=== PATIENT | male | born 1985 | race Caucasian/White ===

== ENCOUNTER → 2019-07-10 16:46 | Outpatient (BNVA) | payer SELFPAY | PROVIDERS: PCP Family Medicine; Visit Provider Nurse Practitioner | DX: R50.9 Fever, unspecified (principal) | CPT/HCPCS: 87804 ==

== ENCOUNTER → 2019-09-13 14:50 | Outpatient (BNVA) | payer OTHER, SELFPAY | PROVIDERS: PCP Family Medicine; Visit Provider Nurse Practitioner | DX: M79.641 Pain in right hand (principal); M79.89 Other specified soft tissue disorders | CPT/HCPCS: 73130 ==

== ENCOUNTER 2020-01-07 12:26 | Emergency (ER) | payer SELFPAY ==
[2020-01-07 12:34] VITALS: BP 116/76; PULSE 63; RESP 16; TEMP 36.7; O2SAT 98; BMI 22.3
--- NOTE | 2020-01-07 12:43 | ED_ITS ---
HPI - Back Pain/Injury General: Chief Complaint: Back Pain/Injury Stated Complaint: BACK PAIN Time Seen by Provider: 01/07/20 12:43 Source: patient Mode of arrival: ambulatory Limitations: no limitations History of Present Illness: HPI Narrative: Patient is a nice 34-year-old male who presents to ED today with complaints of right-sided back/flank pain that began this morning when patient awoke. Patient tells me he felt normal when he went to bed yesterday evening. He states he cannot think of anything he would have done to injure or strain his back. He is also concerned stating he has only urinated twice today and has drank several bottles of water/fluid. Patient is not been running fevers. He has not noticed any color changes to his urine. He has no previous history of back pain or back injury. MD elicited complaint: back pain Onset (ago): hour(s) Timing: constant Similar Symptoms Previously: No Quality: sharp Location: right flank Radiation: none Exacerbating factors: none Relieving factors: none Associated symptoms: Reports other (decreased urination ); Deny abdominal pain, chills, dysuria, fever(s), hematuria, nausea, urinary urgency or vomiting Work related injury: No Review of Systems Const: Denies: fever(s) or chills Card: Denies: chest pain Resp: Denies: dyspnea GI: Denies: abdominal pain, nausea, vomiting or diarrhea : Reports: flank pain and oliguria; Denies: difficulty urinating, dysuria, urinary frequency, urinary urgency, urinary hesitancy, change in urine stream, hematuria, genital pain, genital lesions, penile discharge, testicular pain, testicular mass or scrotal swelling Musc: Reports: back pain (R sided back/flank pain) [facility] ED PFSH: Social History (Updated 09/13/19 @ 14:40 by Jen Norris LPN) Smoking and tobacco status: current every day smoker Physical Exam Const: COMMON NORMALS: no acute distress, average body habitus, patient oriented x3, no limitations, healthy appearing, alert and well nourished Chest: COMMONS NORMALS: normal inspection of the chest and normal palpation of entire chest wall Resp: COMMON NORMALS: normal respiratory effort and clear to auscultation bilaterally AUSCULTATION: clear to auscultation bilaterally Cardio: COMMON NORMALS: regular rate and regular rhythm RATE: regular rate RHYTHM: regular rhythm : BLADDER/KIDNEY EXAM: Yes CVA tenderness (R flank and below/R lumbar paraspinal muscles ) Back/Pelvis: COMMON NORMALS: thoracic and lumbar spine normal to inspection, no thoracic nor lumbar tenderness, thoraco-lumbar ROM normal and straight leg raise negative bilaterally GENERAL BACK: Yes CVA tenderness (R flank and below/R lumbar paraspinal muscles ) LUMBAR SPINE/LOWER BACK: Yes normal to inspection, Yes lumbar ROM normal, No lumbar spinal tenderness and Yes paraspinal muscle tenderness (L lumbar ) Extremity: COMMON NORMALS: normal to inspection GENERAL: Yes normal exam except as noted Neuro: COMMON NORMALS: patient oriented x3 SENSORIUM/ORIENTATION: Yes alert Skin: COMMON NORMALS: no rashes or lesions noted GENERAL SKIN EXAM: no rashes or lesions noted Course Vital Signs: Vital signs: Vital Signs Temperature 98.1 F 01/07/20 12:34 Pulse Rate 63 01/07/20 12:34 Respiratory Rate 14 01/07/20 14:31 Blood Pressure 116/76 01/07/20 12:34 Pulse Oximetry 98 01/07/20 12:34 MDM - Back Pain/Injury MDM Narrative: Medical decision making narrative: Pts labs are non-concerning. UA shows no blood or infection. Likelihood of a kidney or ureter stone is extremely low. Patient does have muscle spasm of right lumbar paraspinal musculature. He will be treated with NSAIDs and muscle relaxers. Return to ED precautions given. Lab Data: Labs: Lab Results 01/07/20 01/07/20 01/07/20 Range/Units 13:15 13:15 13:25 WBC 6.3 (4.0-10.0) 10^3/ uL RBC 4.95 (4.1-5.3) 10^6/u L Hgb 14.4 (11.7-16.6) g/dL Hct 43.6 (42.0-52.0) % MCV 88.1 (80-94) fL MCH 29.1 (28.0-34.0) pg MCHC 33.0 (30.0-36.0) g/dL RDW 13.1 (12.1-15.1) % Plt Count 212 (130-400) 10^3/c mm MPV 9.8 (7.4-10.4) fL Neut % (Auto) 66.1 % Lymph % (Auto) 26.1 % Humphreys % (Auto) 6.1 % Eos % (Auto) 1.0 % Baso % (Auto) 0.5 % Neut # (Auto) 4.1 (1.8-7.7) 10^3/u L Lymph # (Auto) 1.6 (0.8-4.8) 10^3/u L Humphreys # (Auto) 0.4 (0.2-0.9) 10^3/u L Eos # (Auto) 0.1 (0.0-0.8) 10^3/u L Baso # (Auto) 0.0 (0.0-0.1) 10^3/u L Nucleated RBC % (a uto) 0 % Nucleated RBCs # 0.0 /100WBC Sodium 140 (136-145) mmol/L Potassium 3.8 (3.5-5.1) mmol/L Chloride 105 (98-107) mmol/L Carbon Dioxide 26 (22-29) mmol/L Anion Gap 12.8 (5-19) BUN 12 (6-20) mg/dL Creatinine 0.7 (0.7-1.2) mg/dL GFR Calculation 129.1 (90-130) mL/min Glucose 97 (65-115) mg/dL Calculated Osmolal ity 286 (285-295) mOsm/k g Calcium 9.2 (8.5-10.5) mg/dL Total Bilirubin 0.3 (0.15-1.2) mg/dL AST 20 (0-40) U/L ALT 16 (0-41) U/L Alkaline Phosphata se 69 (40-130) IU/L Total Protein 6.6 (6.6-8.7) g/dL Albumin 4.5 (3.5-5.2) g/dL Globulin 2.1 (1.3-4.6) g/dL Urine Color Yellow (Yellow) Urine Appearance Clear (CLEAR) Urine pH 6 (5-7) Ur Specific Gravit y 1.020 (1.005-1.030) Urine Protein Neg (Negative) Urine Glucose (UA) Norm (Normal) Urine Ketones Negative (Negative) Urine Blood Neg (Negative) Urine Nitrate Negative (Negative) Urine Bilirubin Neg (NEGATIVE) Urine Urobilinogen Norm (Negative) mg/dL Ur Leukocyte Shanique ase Negative (Negative) Discharge Plan Discharge Patient Disposition: Home, Self-Care Clinical Impression: Right lumbar pain Qualifiers: Chronicity: acute Sciatica presence: without sciatica Qualified Code(s): M54.5 - Low back pain Condition: Stable Prescriptions: New ibuprofen 800 mg tablet 800 mg PO Q8H PRN (Reason: pain) Qty: 20 RF: 0 Robaxin-750 750 mg tablet 750 mg PO Q8H Qty: 14 RF: 0 Discharge Orders: Discharge Order (Routine); Ordered 01/07/20 Ordered By: Joycelyn Lozada Referrals: Nelsy Lock MD [Primary Care Provider] - Patient Instructions: Low Back Strain (ED), Muscle Spasm (ED), Back Pain (ED) Activity Restrictions/Additional Instructions: Please follow-up with primary care in one week if pain persists. You may return to the emergency department for worsening pain, fevers, difficulty or inability to urinate, or any other concerns you may have. 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
[2020-01-07 13:20] LABS: Basophils % 0.5 %; Eosinophils # 0.1 10^3/uL (0.0-0.8); Hematocrit 43.6 % (42.0-52.0); Hemoglobin 14.4 g/dL (11.7-16.6); Lymphocytes # 1.6 10^3/uL (0.8-4.8); Lymphocytes % 26.1 %; Mean Corpuscular Hemoglobin 29.1 pg (28.0-34.0); Mean Corpuscular Volume 88.1 fL (80-94); Mean Platelet Volume 9.8 fL (7.4-10.4); Monocytes # 0.4 10^3/uL (0.2-0.9); Monocytes % 6.1 %; Neutrophils # 4.1 10^3/uL (1.8-7.7); Neutrophils % 66.1 %; Nucleated Red Blood Cells % 0 %; Platelet Count 212 10^3/cmm (130-400); Red Blood Count 4.95 10^6/uL (4.1-5.3); Red Cell Distribution Width 13.1 % (12.1-15.1); White Blood Count 6.3 10^3/uL (4.0-10.0)
[2020-01-07 13:40] LABS: Alanine Aminotransferase 16 U/L (0-41); Albumin Level 4.5 g/dL (3.5-5.2); Alkaline Phosphatase 69 IU/L (40-130); Anion Gap 12.8 (5-19); Aspartate Amino Transferase 20 U/L (0-40); Blood Urea Nitrogen 12 mg/dL (6-20); Calcium 9.2 mg/dL (8.5-10.5); Carbon Dioxide 26 mmol/L (22-29); Chloride 105 mmol/L (98-107); Globulin 2.1 g/dL (1.3-4.6); Glomerular Filtration Rate 129.1 mL/min (90-130); Glucose 97 mg/dL (65-115); Osmolality Calculated 286 mOsm/kg (285-295); Potassium 3.8 mmol/L (3.5-5.1); Sodium 140 mmol/L (136-145); Total Bilirubin 0.3 mg/dL (0.15-1.2); Total Protein 6.6 g/dL (6.6-8.7)
[2020-01-07 14:12] LABS: Add Urine Microscopic? NO
[2020-01-07 14:31] VITALS: RESP 14
[2020-01-07 14:32] LABS: Urine Appearance Clear (CLEAR); Urine Color Yellow (Yellow); pH Urine 6 (5-7)
[2020-01-07 14:33] LABS: Bilirubin Urine Neg (NEGATIVE); Blood Urine Neg (Negative); Glucose Urine UA Norm (Normal); Ketones Urine Negative (Negative); Leukocyte Esterase Urine Negative (Negative); Nitrate Urine Negative (Negative); Protein Urine Neg (Negative); Urobilinogen Urine Norm (Negative)
[2020-01-07 14:45] VITALS: BP 116/52; PULSE 55; RESP 14; O2SAT 100
== END 2020-01-07 14:45 | disposition home or self-care (01) ==
PROVIDERS: Emergency Provider Physician Assistant; PCP Family Medicine
DX: M54.5 Low back pain (principal); F17.210 Nicotine dependence, cigarettes, uncomplicated
CPT/HCPCS: 12345; 36415; 80053; 81003; 85025; 99281; 99282

== ENCOUNTER 2020-08-03 20:53 | Emergency (ER) | payer SELFPAY ==
[2020-08-03 20:58] VITALS: BP 128/79; PULSE 78; RESP 16; TEMP 36.7; O2SAT 96; BMI 23.0
[2020-08-03 21:02] VITALS: PULSE 105; RESP 20; O2SAT 100
--- NOTE | 2020-08-03 21:13 | ED_ITS ---
HPI - COVID General: Chief Complaint: COVID symptoms Stated Complaint: cough/covid exposure Time Seen by Provider: 08/03/20 21:11 Triage information: Has fever, cough or shortness of breath . Exposure to COVID + person last 14 days History of Present Illness: HPI Narrative: Patient has exposure to Covid virus through family members. Patient started feeling bad hearsay muscle aches chills cough. Want to be tested for Covid. Needs note for work. MD complaint: reported COVID exposure and has COVID symptoms Prior covid testing: no COVID 19 common symptoms: positive chills, non-productive cough, fatigue, body aches and nasal congestion; negative headache(s), nausea or vomiting COVID 19 other sytmptoms: negative chest pain Onset (ago): day(s) Severity: mild Treatment prior to arrival: none COVID Results: No Data to Display Review of Systems Const: Reports: chills, body aches and fatigue Eyes: Denies: change in vision or blurry vision ENMT: Reports: nasal congestion Card: Denies: chest pain or dyspnea on exertion Resp: Reports: non-productive cough GI: Denies: abdominal pain, nausea or vomiting : Denies: difficulty urinating Musc: Denies: extremity pain Skin/Breast: Denies: rash Neuro: Denies: headache(s) Psych: Denies: anxiety or depression Zaheer/Lymph: Denies: easy bruising PFSH ED PFSH: Social History (Updated 09/13/19 @ 14:40 by FRANCIS Groves) Smoking and tobacco status: current every day smoker Physical Exam Const: COMMON NORMALS: no acute distress, average body habitus and patient oriented x3 HENMT: COMMON NORMALS: normocephalic HEAD & SCALP: normal to inspection and normocephalic FACE & SINUS: normal facial exam Eye: COMMON NORMALS: conjunctivae normal GENERAL EYE: appearance normal, both eyes and all related structures CONJUNCTIVA: Yes conjunctivae normal Neck/C-Spine: COMMON NORMALS: no JVD Chest: COMMONS NORMALS: normal inspection of the chest Resp: COMMON NORMALS: normal respiratory effort Cardio: COMMON NORMALS: no JVD and regular rate RATE: regular rate GI: INSPECTION: Yes normal to inspection Extremity: COMMON NORMALS: normal to inspection and full ROM Neuro: COMMON NORMALS: patient oriented x3 Course Vital Signs: Vital signs: Vital Signs Temperature 98.0 F 08/03/20 20:58 Pulse Rate 78 08/03/20 20:58 Respiratory Rate 16 08/03/20 20:58 Blood Pressure 128/79 08/03/20 20:58 Pulse Oximetry 96 08/03/20 20:58 MDM - COVID COVID Results: No Data to Display Discharge Plan Discharge Patient Disposition: Home Clinical Impression: Exposure to severe acute respiratory syndrome coronavirus 2 (SARS-CoV-2) Condition: Stable Prescriptions: No Action ibuprofen 800 mg tablet 800 mg PO Q8H PRN (Reason: pain) Qty: 20 RF: 0 Robaxin-750 750 mg tablet 750 mg PO Q8H Qty: 14 RF: 0 Discharge Orders: Discharge ED (Routine); Ordered 08/03/20 Ordered By: Antonio Fortune Referrals: Nelsy Lock MD [Physician] - Discharge Diet: Usual diet Discharge Activity: Increase activity as tolerated Patient Instructions: Viral Syndrome (ED) Activity Restrictions/Additional Instructions: Quarantine at home until test results are back. Eat plenty of chicken noodle soup can take Tylenol for discomfort. 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
[2020-08-05 17:17] LABS: Coronavirus Test Green County Not Detected
--- NOTE | 2020-08-06 08:22 | PC.NURSE ---
pt was called and informed of his COVID results
== END 2020-08-03 21:41 | disposition home or self-care (01) ==
PROVIDERS: Emergency Provider Nurse Practitioner Family
DX: Z20.822 Contact with and (suspected) exposure to COVID-19 (principal); F17.210 Nicotine dependence, cigarettes, uncomplicated
CPT/HCPCS: 12345; 87635; 99283

== ENCOUNTER 2022-02-15 08:43 | Emergency (ER) | payer SELFPAY ==
[2022-02-15 08:45] VITALS: BP 125/77; PULSE 55; RESP 17; TEMP 36.3; O2SAT 99; BMI 23.7
[2022-02-15] MEDS: ketorolac 30 mg/mL INJ IVP (09:52)
[2022-02-15] MEDS: orphenadrine 30 mg/mL Inj 2 mL 60 MG IVP (09:53)
[2022-02-15] MEDS: dexamethasone 10 mg/mL INJ IVP (09:53)
[2022-02-15 09:56] VITALS: BP 105/68; PULSE 50; RESP 17; O2SAT 98
[2022-02-15 10:17] VITALS: BP 110/78; PULSE 50; RESP 17; O2SAT 96
--- NOTE | 2022-02-15 15:57 | ED_ITS ---
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 He is complaining of back pain ever since and no radiation of pain into his lower extremities no difficulty with bowel or bladder. No previous advanced imaging or surgeries or other procedures on the back. He has had various difficulties with low back pain in the past usually resolved with conservative measures. He denies dysuria urgency or frequency no hematuria. MD elicited complaint: back pain Pertinent past history: prior back pain Onset (ago): day(s) (3) Timing: constant Severity: moderate Similar Symptoms Previously: Yes Quality: aching Location: lumbar spine Radiation: none Exacerbating factors: none Relieving factors: none Associated symptoms: Deny abdominal pain, arthralgias, chills, change in bowel habits, difficulty walking, dysuria, fatigue, fecal incontinence, fever(s), hematuria, myalgias, nausea, numbness, syncope, tingling/numbness/burning, urinary frequency, urinary urgency, vomiting or weakness Review of Systems Const: Denies: fever(s), chills, fatigue or malaise ENMT: Denies: throat pain, ear or mastoid pain, nasal discharge or nasal congestion Card: Denies: chest pain, palpitations or syncope Resp: Denies: dyspnea, productive cough or non-productive cough GI: Denies: abdominal pain, nausea, vomiting, fecal incontinence or change in bowel habits : Denies: flank pain, difficulty urinating, dysuria, urinary frequency, urinary urgency or hematuria Musc: Reports: back pain Skin/Breast: Denies: rash or pruritus Neuro: Denies: difficulty walking PFSH ED PFSH: Medical History Cellulitis of multiple sites of hand and fingers Eczema of both hands Social History Smoking and tobacco status: current every day smoker Physical Exam Const: COMMON NORMALS: no acute distress GENERAL APPEARANCE: cooperative and comfortable ORIENTATION/CONSCIOUSNESS: Yes awake, Yes oriented to person, Yes oriented to place and Yes oriented to time HENMT: COMMON NORMALS: normocephalic, atraumatic and hearing grossly normal bilaterally HEAD & SCALP: normocephalic and atraumatic Resp: COMMON NORMALS: normal respiratory effort, No retractions, No use of accessory muscles and clear to auscultation bilaterally AUSCULTATION: clear to auscultation bilaterally Cardio: COMMON NORMALS: regular rate, regular rhythm and No murmurs present (Cardio) RATE: regular rate RHYTHM: regular rhythm GI: COMMON NORMALS: Soft to palpation and No hepatosplenomegaly present AUSCULTATION: Yes normoactive bowel sounds PALPATION: Yes Soft to palpation, No Tenderness to palpation present (GI), No Guarding due to palpation present (GI) and Yes No hepatosplenomegaly present Extremity: COMMON NORMALS: normal to inspection, capillary refill normal, no clubbing, cyanosis or edema, no calf tenderness and no pedal edema Neuro: SENSORIUM/ORIENTATION: Yes oriented to person, Yes oriented to place and Yes oriented to time MOTOR EXAM: 5/5 motor strength present throughout DEEP TENDON REFLEXES: Right patellar reflex intensity grade: 2+ and Left patellar reflex intensity grade: 2+ Skin: COMMON NORMALS: no rashes or lesions noted GENERAL SKIN EXAM: no rashes or lesions noted Course Vital Signs: Vital signs: Vital Signs Temperature 97.4 F L 02/15/22 08:45 Pulse Rate 50 L 02/15/22 10:17 Respiratory Rate 17 02/15/22 10:17 Blood Pressure 110/78 02/15/22 10:17 Pulse Oximetry 96 02/15/22 10:17 [facility] 02/15/22 09:56 MDM - Back Pain/Injury Medical Decision Making Low back pain with no signs of radicular symptoms. Treat symptomatically s teroids muscle relaxers anti-inflammatories follow-up with primary care. Return if has bowel incontinence or urinary retention. Medical Records I reviewed the patient's medical records. Labs I reviewed the patient's lab results. Discharge Plan Discharge Patient Disposition: Home Clinical Impression: Strain of lumbar region Condition: Stable Prescriptions: New prednisone 20 mg tablet 20 mg PO TID Qty: 15 0RF Rx Instructions: 1 p.o. 3 times daily x3 days, 1 p.o. twice daily x2 days, 1 p.o. daily x2 days diclofenac sodium 75 mg tablet,delayed release (DR/EC) 75 mg PO Q12H PRN (Reason: pain) Qty: 20 0RF tizanidine 4 mg capsule 4 mg PO Q6H PRN (Reason: muscle spasticity) Qty: 20 0RF Rx Instructions: do not exceed 3 doses per 24 hrs No Action betamethasone dipropionate 0.05 % ointment 1 applic topical BID Qty: 15 0RF doxycycline hyclate 100 mg tablet 100 mg PO BID 7 Days Qty: 14 0RF ibuprofen 800 mg tablet 800 mg PO Q8H PRN (Reason: pain) Qty: 20 0RF Discharge Orders: Discharge ED (Routine); Ordered 02/15/22 Ordered By: Lopez Zapien Discharge Diet: Usual diet Discharge Activity: Limit activity as instructed Patient Instructions: Opioid Safety Activity Restrictions/Additional Instructions: Do not work below the waist or above the shoulders. Follow-up with your primary care doctor if not improving. 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
== END 2022-02-15 10:19 | disposition home or self-care (01) ==
PROVIDERS: Emergency Provider Family Medicine
DX: S39.012A Strain of muscle, fascia and tendon of lower back, initial encounter (principal); F17.210 Nicotine dependence, cigarettes, uncomplicated; X50.9XXA Other and unspecified overexertion or strenuous movements or postures, initial encounter
CPT/HCPCS: 96374; 96375; 99284; J1100; J1885; J2360

== ENCOUNTER 2022-10-20 07:55 | Emergency (ER) | payer SELFPAY ==
[2022-10-20 08:29] VITALS: BP 107/76; PULSE 61; RESP 16; TEMP 36.7; O2SAT 98; BMI 21.6
--- NOTE | 2022-10-20 08:39 | CT_ITS ---
WS: [id number] CT HEAD NONCONTRAST HISTORY: headaches with bilateral hand and forearm numbness TECHNIQUE: Contiguous axial imaging performed through the brain in 2.5 mm imaging. Bone and soft tiss ue windows. Sagittal and coronal reformats reviewed. All CT scans at [facility] use at least one of these dose optimization techniques: automated exposure control; mA and/or kV adjustment per pa tient size (includes targeted exams where dose is matched to clinical indication); or iterative recon struction. DLP: 1029.44 mGy.cm COMPARISON: None available. No acute intracranial hemorrhage, midline shift or mass effect. No atrophy or prior infarcts or herniation. Ventricles: Normal size with no hydrocephalus. No inferior displacement of cerebellar tonsils. There is very slight ectopia but no Chiari malformati on. Paranasal sinuses: As visualized are clear. Mastoid air cells: Well pneumatized. Calvarium and scalp: Skull is intact with no soft tissue edema or swelling. CT/CT head wo con* [id number] IMPRESSION: Negative head CT.
--- NOTE | 2022-10-20 08:42 | W.ED.EXTPRO ---
HPI - Extremity Problem General: Chief complaint: Extremity Problem,Nontraumatic Stated complaint: headache, weakness Time Seen by Provider: 10/20/22 07:56 History of Present Illness: Patient is a 36-year-old male who comes to the ED with chronic headaches. Patient says for the past 2 years he has been dealing with the symptoms. He has not been checked out or evaluated by any medical provider for this issue. Endorses having migraines in the past but states these headaches are not like his past migraines. For the past 2 years he has been developing these episodes of an acute headache and muscle weakness. They usually last for couple days. Yesterday he developed a headache that he rated 9 out of 10 and it was generalized through his entire head. He also started having bilateral hand and forearm numbness/tingling. Today his headache patient does have a physical job and works at a [employer] and is using his hands a lot. Denies any vision changes or recent head injuries. Associated symptoms: Deny chest pain, fever(s) or rash Review of Systems Const: Denies: fever(s), chills or fatigue Eyes: Denies: change in vision or eye discomfort ENMT: Denies: throat pain, odynophagia, nasal discharge or nasal congestion Card: Denies: chest pain, palpitations, edema, swelling of feet/ankles, dyspnea on exertion or orthopnea Resp: Denies: dyspnea, productive cough or non-productive cough GI: Denies: abdominal pain, nausea, vomiting, diarrhea, constipation or hematochezia : Denies: flank pain, difficulty urinating, dysuria or hematuria Musc: Denies: neck pain, back pain or extremity swelling Skin/Breast: Denies: rash or new lesions Neuro: Reports: headache(s) and numbness in extremities (Bilateral hands and forearms); Denies: weakness in extremities [facility] ED PFSH: Medical History Cellulitis of multiple sites of hand and fingers Eczema of both hands Social History Smoking and tobacco status: current every day smoker Physical Exam Const: COMMON NORMALS: patient oriented x3 HENMT: COMMON NORMALS: normocephalic HEAD & SCALP: normocephalic MOUTH: Normal oral and palatal mucosa present THROAT: posterior oropharynx normal and uvula midline Eye: COMMON NORMALS: Equal, round and reactive pupils present and EOMs intact bilaterally GENERAL EYE: appearance normal, both eyes and all related structures PUPIL: Yes Equal, round and reactive pupils present Neck/C-Spine: COMMON NORMALS: supple GENERAL: Yes normal visual inspection Lymph: LYMPHATIC: no lymphadenopathy noted Resp: COMMON NORMALS: normal respiratory effort, No retractions, No use of accessory muscles and clear to auscultation bilaterally AUSCULTATION: clear to auscultation bilaterally Cardio: COMMON NORMALS: regular rate, regular rhythm, S1 normal heart sound present, S2 normal heart sound present, No gallops present (Cardio), No clicks present (Cardio), No murmurs present (Cardio) and Peripheral pulses 2+ throughout RATE: regular rate RHYTHM: regular rhythm HEART SOUNDS: S1 normal heart sound present and S2 normal heart sound present PERIPHERAL PULSES: Peripheral pulses 2+ throughout GI: COMMON NORMALS: Normal to inspection, nondistended, normoactive bowel sounds present, Soft to palpation, non-tender and no masses PALPATION: Yes Soft to palpation : COMMON NORMALS: Yes no CVA tenderness BLADDER/KIDNEY EXAM: Yes no CVA tenderness Back/Pelvis: COMMON NORMALS: no CVA tenderness Extremity: GENERAL: Yes normal exam except as noted Neuro: COMMON NORMALS: patient oriented x3, CN's II-XII intact bilaterally, moves all extremities, no focal motor deficits and no sensory deficits noted SENSORY EXAM: Yes extremities (intact) MOTOR EXAM: 5/5 motor strength present throughout Skin: COMMON NORMALS: no rashes or lesions noted GENERAL SKIN EXAM: no rashes or lesions noted and dry skin Course Vital Signs: Vital signs: Vital Signs Temperature 98.0 F 10/20/22 09:36 Pulse Rate 61 10/20/22 09:36 Respiratory Rate 16 10/20/22 09:36 Blood Pressure 107/76 10/20/22 09:36 Pulse Oximetry 98 10/20/22 09:36 Oxygen Delivery Me thod Room Air 10/20/22 08:29 MDM - Extremity (Nontraumatic) Medical Decision Making Patient is a 36-year-old male who comes to the ED with chronic headaches. Patient says for the past 2 years he has been dealing with the symptoms. He has not been checked out or evaluated by any medical provider for this issue. Endorses having migraines in the past but states these headaches are not like his past migraines. For the past 2 years he has been developing these episodes of an acute headache and muscle weakness. They usually last for couple days. Yesterday he developed a headache that he rated 9 out of 10 and it was generalized through his entire head. He also started having bilateral hand and forearm numbness/tingling. Today his headache patient does have a physical job and works at a [employer] and is using his hands a lot. Denies any vision changes or recent head injuries. Vitals are stable. Neuro exam shows no deficits. Patient appears nontoxic in no acute distress or pain. CT of head shows no acute findings. Patient's problem is chronic and not acute. His hand numbness is likely due to carpal tunnel syndrome given his work history. Patient's symptoms would be better suited for further evaluation in outpatient setting. He is stable for discharge home and told to follow-up with PCP in the next week for reevaluation. Lab Data Radiology Impressions Head CT 10/20/22 08:39 IMPRESSION: Negative head CT. Discharge Plan Discharge Patient Disposition: Home Clinical Impression: Bilateral carpal tunnel syndrome Headache Qualifiers: Headache type: unspecified Headache chronicity pattern: unspecified pattern Intractability: not intractable Qualified Code(s): R51.9 - Headache, unspecified Condition: Stable Prescriptions: No Action betamethasone dipropionate 0.05 % ointment 1 applic topical BID Qty: 15 0RF doxycycline hyclate 100 mg tablet 100 mg PO BID 7 Days Qty: 14 0RF ibuprofen 800 mg tablet 800 mg PO Q8H PRN (Reason: pain) Qty: 20 0RF prednisone 20 mg tablet 20 mg PO TID Qty: 15 0RF Rx Instructions: 1 p.o. 3 times daily x3 days, 1 p.o. twice daily x2 days, 1 p.o. daily x2 days diclofenac sodium 75 mg tablet,delayed release (DR/EC) 75 mg PO Q12H PRN (Reason: pain) Qty: 20 0RF tizanidine 4 mg capsule 4 mg PO Q6H PRN (Reason: muscle spasticity) Qty: 20 0RF Rx Instructions: do not exceed 3 doses per 24 hrs Discharge Orders: Discharge ED (Routine); Ordered 10/20/22 Ordered By: Enoch Magana Discharge Diet: Regular Discharge Activity: Resume usual activity Activity Restrictions/Additional Instructions: Follow-up with medical provider as directed in the next 5 to 7 days for reevaluation. Take medications as prescribed. Return to the ER or your medical provider if condition worsens. Please read and understand discharge instructions. Thank you for choosing [facility] for your healthcare needs today. Please realize this is an emergency room and that we are providing you with a medical screening exam and this may not be complete and all inclusive of all the testing and or work up that you may need to determine your ailment or severity of your illness. It is very important that you follow up as instructed or that you return to the Emergency Department should you have concerns or if your condition changes or worsens in any way. 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
[2022-10-20 09:36] VITALS: BP 107/76; PULSE 61; RESP 16; TEMP 36.7; O2SAT 98
--- NOTE | 2022-10-22 13:45 | DCPLANNER ---
aircraft manager called patient due to no primary care physician - no answer at this time.
== END 2022-10-20 09:39 | disposition home or self-care (01) ==
PROVIDERS: Emergency Provider Physician Assistant
DX: R51.9 Headache, unspecified (principal); G56.03 Carpal tunnel syndrome, bilateral upper limbs; F17.210 Nicotine dependence, cigarettes, uncomplicated
CPT/HCPCS: 70450; 99284

== ENCOUNTER → 2022-10-26 10:38 | Outpatient (BNVA) | payer SELFPAY | PROVIDERS: Visit Provider Family Medicine Adult Medicine | DX: S67.10XA Crushing injury of unspecified finger(s), initial encounter (principal); X58.XXXA Exposure to other specified factors, initial encounter | CPT/HCPCS: 73140 ==

== ENCOUNTER → 2023-07-23 18:58 | Outpatient (BNVA) | payer SELFPAY | PROVIDERS: Visit Provider Emergency Medicine | DX: Z20.828 Contact with and (suspected) exposure to other viral communicable diseases (principal); J06.9 Acute upper respiratory infection, unspecified | CPT/HCPCS: 87400 ==

== ENCOUNTER 2023-08-12 00:48 | Emergency (ER) | payer OTHER, SELFPAY ==
[2023-08-12 00:57] VITALS: BP 132/82; PULSE 60; RESP 16; TEMP 36.5; O2SAT 98; BMI 24.5
--- NOTE | 2023-08-12 01:08 | XRR_ITS ---
PROCEDURE INFORMATION: Exam: XR Lumbosacral Spine Exam date and time: 08/12/2023 1:14 AM Age: 37 years old Clinical indication: Low back pain; Patient HX: Pain just to the left around l4- no known injury; Additional info: Left side pain, no trauma TECHNIQUE: Imaging protocol: Radiologic exam of the lumbosacral spine. Views: 2 or 3 views. COMPARISON: No relevant prior studies available. FINDINGS: Bones/joints: Slight levocurvature of the lumbar spine. Mild straightening of the usual lumbar lordosis. Minimal retrolisthesis of L3 on L4. No acute appearing vertebral body height loss. Tiny marginal osteophytes, most notably at L4. Soft tissues: Unremarkable. XR/XR lumbar spine 2-3V* [id number] IMPRESSION: No acute fracture.
--- NOTE | 2023-08-12 01:09 | ED_ITS ---
HPI - Back Pain/Injury General: Chief Complaint: Back Pain/Injury Stated Complaint: back pain Time Seen by Provider: 08/12/23 00:57 History of Present Illness: Patient presents to the ER complaining of left-sided lumbar paraspinal pain that started about 630 last night. Patient does not know of any trauma, overuse, anything that could have set it off. Patient does state he has this pain all every once in a while but not this bad. Patient has no change in bowel or bladder. No fevers chills. Review of Systems General: Reports: 10 or more systems reviewed and unremarkable except in HPI and below PFSH ED PFSH: Medical History Open crushing injury of finger Crushing injury of finger of left hand Cellulitis of multiple sites of hand and fingers Eczema of both hands Social History Smoking and tobacco/nicotine status: current every day tobacco/nicotine user Substance/Drug Use: current Physical Exam Const: COMMON NORMALS: no acute distress, average body habitus, patient branden ented x3, no limitations, healthy appearing, alert and well nourished HENMT: COMMON NORMALS: normocephalic, atraumatic, hearing grossly normal dino aterally, external ears normal, Normal external nose present, moist oral mucous membranes and oropharynx normal HEAD & SCALP: normocephalic and atraumatic NOSE: Normal external nose present EXTERNAL EAR: Yes external ears normal Neck/C-Spine: COMMON NORMALS: no JVD Chest: COMMONS NORMALS: normal inspection of the chest and normal palpation of entire chest wall Resp: COMMON NORMALS: normal respiratory effort, No retractions, No use of accessory muscles and clear to auscultation bilaterally AUSCULTATION: clear to auscultation bilaterally Cardio: COMMON NORMALS: no JVD, regular rate, regular rhythm, S1 normal heart sound present, S2 normal heart sound present, No gallops present (Cardio), No clicks present (Cardio), No murmurs present (Cardio) and No rub (Cardio) RATE: regular rate RHYTHM: regular rhythm HEART SOUNDS: S1 normal heart sound present and S2 normal heart sound present Back/Pelvis: OTHER: Tender to palpate left lumbar paraspinal musculature. No crepitus deformity tenderness with palpation directly over lumbar spinous processes. Right paraspinals normal. Neuro: COMMON NORMALS: patient oriented x3 SENSORIUM/ORIENTATION: Yes alert Course Vital Signs: Vital signs: Vital Signs Temperature 97.7 F 08/12/23 00:57 Pulse Rate 59 L 08/12/23 01:18 Respiratory Rate 14 08/12/23 01:18 Blood Pressure 126/77 08/12/23 01:18 Pulse Oximetry 97 08/12/23 01:18 Oxygen Delivery Me thod Room Air 08/12/23 01:18 MDM - Back Pain/Injury Medical Decision Making X-rays obtained of the lumbar spine area which showed no acute fracture. Patient was given 60 mg Toradol, 60 mg Norflex, 10 mg Decadron, patient stated that this did not help his pain at all. Patient did drive here so we are limited in what we can give him. We will give him a prescription for anti- inflammatories and muscle relaxers to go home on. Differential Diagnosis Likely strain of lumbar region; Unlikely lumbar radiculopathy, sciatica, renal colic, pyelonephritis, thoracic back pain, AAA or discitis Medical Records I reviewed the patient's medical records. Labs I reviewed the patient's lab results. Radiology Impressions Lumbar Spine X-Ray 08/12/23 01:08 IMPRESSION: No acute fracture. All radiology interpretation(s) finalized by discharge Discharge Plan Discharge Patient Disposition: Home Clinical Impression: Acute low back pain Qualifiers: Back pain laterality: left Sciatica presence: without sciatica Qualified Code(s): M54.50 - Low back pain, unspecified Condition: Stable Prescriptions: New diclofenac sodium 50 mg tablet,delayed release (DR/EC) 50 mg PO Q8H PRN (Reason: pain) Qty: 14 0RF baclofen 5 mg tablet 5 mg PO TID PRN (Reason: muscle spasm) Qty: 14 0RF Discontinued ibuprofen 600 mg tablet 600 mg PO Q8H PRN (Reason: pain) Qty: 60 0RF ibuprofen 800 mg tablet 800 mg PO Q8H PRN (Reason: pain) Qty: 20 0RF Discharge Orders: Discharge ED (Routine); Ordered 08/12/23 Ordered By: Alexx Xie Patient Instructions: Acute Low Back Pain (ED), Lower Back Exercises (ED), Pain Management Activity Restrictions/Additional Instructions: Please take all medicine as directed. Please do not drive while on this medicine as it may make you drowsy. Please perform your low back exercises. Please follow-up with your family practice physician within the next 7 days for further evaluation and management. Coding Level of Care Code ED Conference Center Coordinator for John Brewer
[2023-08-12] MEDS: ketorolac 60 mg/2 mL INJ IM (01:11)
[2023-08-12 01:18] VITALS: BP 126/77; PULSE 59; RESP 14; O2SAT 97
[2023-08-12] MEDS: dexamethasone 10 mg/mL INJ IM (01:51)
[2023-08-12] MEDS: orphenadrine 30 mg/mL Inj 2 mL 60 MG IM (01:51)
[2023-08-12 02:27] VITALS: PULSE 55; RESP 14; O2SAT 98
== END 2023-08-12 02:28 | disposition home or self-care (01) ==
PROVIDERS: Emergency Provider Emergency Medicine
DX: M54.50 Low back pain, unspecified (principal); Z72.0 Tobacco use
CPT/HCPCS: 72100; 96372; 99284; J1100; J1885; J2360

== ENCOUNTER 2023-08-13 07:19 | Emergency (ER) | payer OTHER, SELFPAY ==
[2023-08-13 07:30] VITALS: BP 124/76; PULSE 67; RESP 15; O2SAT 98
--- NOTE | 2023-08-13 08:02 | W.ED.BACK ---
HPI - Back Pain/Injury General: Chief Complaint: Back Pain/Injury Stated Complaint: lower back pains Time Seen by Provider: 08/13/23 07:24 Source: patient Mode of arrival: ambulatory History of Present Illness: 37-year-old male presents emergency room with low back pain and was seen earlier this week for same after developing back pain while at work. No bowel or bladder dysfunction. Doing is discharged home at the previous ER visit he was discharged home on anti-inflammatories and muscle relaxers MD elicited complaint: back pain Pertinent past history: prior back pain Onset (ago): day(s) Timing: constant Similar Symptoms Previously: Yes Quality: spasming Location: lumbar spine Radiation: left upper leg Exacerbating factors: none Relieving factors: none Associated symptoms: Reports tingling/numbness/burning; Deny abdominal pain, arthralgias, chills, change in bowel habits, difficulty walking, dysuria, fatigue, fecal incontinence, fever(s), hematuria, myalgias, nausea, numbness, syncope, urinary frequency, urinary urgency, vomiting or weakness Review of Systems Const: Denies: fever(s), chills or fatigue Card: Denies: syncope Resp: Denies: dyspnea GI: Denies: abdominal pain, nausea, vomiting, fecal incontinence or change in bowel habits : Denies: dysuria, urinary urgency or hematuria Musc: Denies: neck pain or back pain Skin/Breast: Denies: rash Neuro: Denies: difficulty walking [facility] ED PFSH: Medical History Open crushing injury of finger Crushing injury of finger of left hand Cellulitis of multiple sites of hand and fingers Eczema of both hands Social History Smoking and tobacco/nicotine status: current every day tobacco/nicotine user Substance/Drug Use: current Physical Exam Const: GENERAL APPEARANCE: cooperative and comfortable ORIENTATION/CONSCIOUSNESS: Yes awake, Yes oriented to person, Yes oriented to place and Yes oriented to time HENMT: COMMON NORMALS: normocephalic, atraumatic and hearing grossly normal bilaterally HEAD & SCALP: normocephalic and atraumatic Resp: COMMON NORMALS: normal respiratory effort, No retractions, No use of accessory muscles and clear to auscultation bilaterally AUSCULTATION: clear to auscultation bilaterally Cardio: COMMON NORMALS: regular rate, regular rhythm and No murmurs present (Cardio) RATE: regular rate RHYTHM: regular rhythm GI: COMMON NORMALS: Soft to palpation and No hepatosplenomegaly present AUSCULTATION: Yes normoactive bowel sounds PALPATION: Yes Soft to palpation, No Tenderness to palpation present (GI), No Guarding due to palpation present (GI) and Yes No hepatosplenomegaly present Extremity: COMMON NORMALS: normal to inspection, capillary refill normal, no clubbing, cyanosis or edema, no calf tenderness and no pedal edema Neuro: SENSORIUM/ORIENTATION: Yes oriented to person, Yes oriented to place and Yes oriented to time OTHER: Dorsum plantarflexion clinical 5 sensation lower extremities normal neurovascular intact strength normal. Difficult to elicit patellar tendon reflexes on the right or the left. Skin: COMMON NORMALS: no rashes or lesions noted GENERAL SKIN EXAM: no rashes or lesions noted Course Vital Signs: Vital signs: Vital Signs Pulse Rate 52 L 08/13/23 11:09 Respiratory Rate 16 08/13/23 11:09 Blood Pressure 115/68 08/13/23 11:09 Pulse Oximetry 97 08/13/23 11:09 Oxygen Delivery Me thod Room Air 08/13/23 07:30 MDM - Back Pain/Injury Medical Decision Making Pain improved with medications given discharged home with prednisone switch from baclofen to tizanidine continue diclofenac follow-up with primary care for referral to physical therapy or advanced imaging if appropriate Medical Records I reviewed the patient's medical records. Labs I reviewed the patient's lab results. All radiology interpretation(s) finalized by discharge Discharge Plan Discharge Patient Disposition: Home Clinical Impression: Acute low back pain Qualifiers: Back pain laterality: left Sciatica presence: without sciatica Qualified Code(s): M54.50 - Low back pain, unspecified Condition: Stable Prescriptions: New tizanidine 4 mg tablet 4 mg PO Q6H PRN (Reason: muscle spasticity) Qty: 20 0RF Rx Instructions: do not exceed 3 doses per 24 hrs prednisone 20 mg tablet 20 mg PO TID Qty: 15 0RF Rx Instructions: 1 p.o. 3 times daily x3 days, 1 p.o. twice daily x2 days, 1 p.o. daily x2 days Discontinued baclofen 5 mg tablet 5 mg PO TID PRN (Reason: muscle spasm) Qty: 14 0RF No Action diclofenac sodium 50 mg tablet,delayed release (DR/EC) 50 mg PO Q8H PRN (Reason: pain) Qty: 14 0RF Discharge Orders: Discharge ED (Routine); Ordered 08/13/23 Ordered By: Lopez Zapien Referrals: CASE MANAGMENT, [Non-Staff] - 1-3 days (PCP) Discharge Diet: Usual diet Discharge Activity: Increase activity as tolerated Patient Instructions: Low Back Strain (ED), Opioid Safety, Pain Management Activity Restrictions/Additional Instructions: Thank you for choosing [facility] for your healthcare needs today. Please realize this is an emergency room and that we are providing you with a medical screening exam and this may not be complete and all inclusive of all the testing and or work up that you may need to determine your ailment or severity of your illness. It is very important that you follow up as instructed or that you return to the Emergency Department should you have concerns or if your condition changes or worsens in any way. Follow-up with your primary care doctor if your pain persist you may need further evaluation or referral to physical therapy. Coding Level of Care Code ED Senior It Specialist for John Brewer
[2023-08-13] MEDS: orphenadrine 30 mg/mL Inj 2 mL 60 MG IVP (08:27)
[2023-08-13] MEDS: dexamethasone 10 mg/mL INJ IV (08:28)
[2023-08-13] MEDS: morphine 4 mg/mL SDV 1 mL IVP (08:30)
[2023-08-13] MEDS: ketorolac 30 mg/mL INJ IVP (08:35)
[2023-08-13 11:09] VITALS: BP 115/68; PULSE 52; RESP 16; O2SAT 97
== END 2023-08-13 11:13 | disposition home or self-care (01) ==
PROVIDERS: Emergency Provider Family Medicine
DX: M54.50 Low back pain, unspecified (principal); Z72.0 Tobacco use
CPT/HCPCS: 96374; 96375; 99284; J1100; J1885; J2270; J2360

== ENCOUNTER 2024-02-14 14:30 | Emergency (ER) | payer OTHER, SELFPAY ==
[2024-02-14] VITALS (7 sets, daily range): BP systolic 108–137; BP diastolic 68–84; PULSE 54–73; RESP 14–20; TEMP 36.9; O2SAT 95–99; BMI 22.6
--- NOTE | 2024-02-14 14:34 | XR_ITS ---
WS: [id number] Examination: XR chest 1V portable [id number] Reason for Exam: weakness Date: February 14, 2024 Comparison: December 06, 2017 Findings: The cardiomediastinal silhouette is within normal limits. There is no effusion or consolidation. There is no congestion. XR/XR chest 1V portable [id number] Impression: No acute lung process is identified.
--- NOTE | 2024-02-14 14:34 | CTR_ITS ---
PROCEDURE INFORMATION: Exam: CT Head Without Contrast Exam date and time: 02/14/2024 3:04 PM Age: 38 years old Clinical indication: Other: Weakness TECHNIQUE: Imaging protocol: Computed tomography of the head without contrast. Radiation optimization: All CT scans at this facility use at least one of these dose optimization techniques: automated exposure control; mA and/or kV adjustment per patient size (includes targeted exams where dose is matched to clinical indication); or iterative reconstruction. COMPARISON: CT head wo con* [id number] 10/20/2022 9:01 AM RADIATION DOSE METRICS: Total DLP (mGy-cm): 1068 FINDINGS: Brain: Normal. No hemorrhage. Unremarkable white matter. No mass effect. Cerebral ventricles: No ventriculomegaly. Paranasal sinuses: Visualized sinuses are unremarkable. No fluid levels. Mastoid air cells: Visualized mastoid air cells are well aerated. Bones: Unremarkable. No acute fracture. Soft tissues: Unremarkable. CT/CT head wo con* [id number] IMPRESSION: No acute intracranial abnormality.
--- NOTE | 2024-02-14 14:38 | ED_ITS ---
HPI - General Adult 2 General: Chief complaint: Weakness Stated complaint: SOB Time Seen by Provider: 02/14/24 14:30 Source: EMS Mode of arrival: EMS Limitations: no limitations History of Present Illness: 38-year-old male states he was at work t khari felt like he is going to pass out. He states that he felt overheated started to get lightheaded nauseous short of breath felt he is going to pass out. He denies or passing out denies having any chest pain or headache. He is having some slight improvement he denies any fevers or recent illness Associated symptoms: Reports dyspnea; Deny chest pain, headache(s), nausea, rash or vomiting Related Data Previous Rx's Medication Instructions Recorded diclofenac sodium 50 mg 50 mg PO Q8H PRN pain #14 tabs 08/12/23 tablet,delayed release prednisone 20 mg tablet 20 mg PO TID #15 tabs 08/13/23 tizanidine 4 mg tablet 4 mg PO Q6H PRN muscle spasticity 08/13/23 #20 tabs Allergies Allergy/AdvReac Type Severity Reaction Status Date / Time cyclobenzaprine Allergy hives Verified 07/23/23 18:47 gabapentin Allergy Unknown Verified 08/13/23 07:35 meloxicam Allergy hives Verified 07/23/23 18:47 Review of Systems 2 Const: Denies: fever(s), chills, body aches or change in appetite Eyes: Reports: blurry vision; Denies: eye discomfort ENMT: Denies: throat pain or dental pain Card: Denies: chest pain Resp: Reports: dyspnea GI: Denies: abdominal pain, nausea, vomiting or diarrhea Musc: Denies: neck pain or back pain Skin/Breast: Denies: rash Neuro: Reports: numbness in extremities; Denies: headache(s) PFSH ED 2 PFSH: Medical History Open crushing injury of finger Crushing injury of finger of left hand Cellulitis of multiple sites of hand and fingers Eczema of both hands Social History Smoking and tobacco/nicotine status: current every day tobacco/nicotine user Substance/Drug Use: current Physical Exam 2 Const: COMMON NORMALS: no acute distress, patient oriented x3 and healthy appearing HENMT: COMMON NORMALS: normocephalic and atraumatic HEAD & SCALP: n ormocephalic and atraumatic Eye: COMMON NORMALS: Equal, round and reactive pupils present and EOMs intact bilaterally PUPIL: Yes Equal, round and reactive pupils present Neck/C-Spine: COMMON NORMALS: full ROM and supple Chest: COMMONS NORMALS: normal inspection of the chest and normal palpation of entire chest wall Resp: COMMON NORMALS: normal respiratory effort, No retractions, No use of accessory muscles and clear to auscultation bilaterally AUSCULTATION: clear to auscultation bilaterally Cardio: COMMON NORMALS: regular rate, regular rhythm and No murmurs present (Cardio) RATE: regular rate RHYTHM: regular rhythm Extremity: COMMON NORMALS: normal to inspection and full ROM Neuro: COMMON NORMALS: patient oriented x3, moves all extremities and no focal motor deficits CRANIAL NERVES: Yes CN normal except as noted SPEECH: s peech normal MOTOR EXAM: 5/5 motor strength present throughout Psych: COMMON NORMALS: mental status grossly normal, Normal thought process present and cooperative THOUGHT PROCESS: Normal thought process present Skin: COMMON NORMALS: no rashes or lesions noted and no wounds GENERAL SKIN EXAM: no rashes or lesions noted Course 2 Vital Signs: Vital signs: Vital Signs Temperature 98.5 F 02/14/24 14:30 Pulse Rate 71 02/14/24 16:00 Respiratory Rate 15 02/14/24 16:00 Blood Pressure 108/68 02/14/24 16:00 Pulse Oximetry 98 02/14/24 16:00 Oxygen Delivery Me thod Room Air 02/14/24 16:00 [facility] - General Adult Medical Decision Making Patient presents here with a near syncopal event he feels much improved after IV fluids orthostatics are normal he is able to ambulate without any difficulty head CT blood work is all normal he stable for discharge follow-up with PCP return if worsening Medical Records I reviewed the patient's medical records. Lab Data I reviewed the patient's lab results. 02/14/24 14:22 02/14/24 14:22 Radiology Impressions Chest X-Ray 02/14/24 14:34 Impression: No acute lung process is identified. Head CT 02/14/24 14:34 IMPRESSION: No acute intracranial abnormality. Laboratory Results WBC 5.84 10^3/uL (3.29-11.43) 02/14/24 14: RBC 5.74 10^6/uL (3.85-5.65) H 02/14/24 14:22 Hgb 16.40 g/dL (11.27-16.99) 02/14/24 14:22 Hct 49.1 % (37-53) 02/14/24 14:22 MCV 85.5 fl (82-101) 02/14/24 14:22 MCH 28.6 pg (27-33) 02/14/24 14:22 MCHC 33.4 g/dL (30-55) 02/14/24 14: RDW 12.1 % (12.1-15.1) 02/14/24 14: Plt Count 274 10^3/cmm (157-399) 02/14/24 14:22 MPV 10.1 fL (7.4-10.4) 02/14/24 14:22 Neut % (Auto) 66.9 % 02/14/24 14:22 Lymph % (Auto) 24.3 % 02/14/24 14:22 [place] % (Auto) 6.7 % 02/14/24 14:22 Eos % (Auto) 1.4 % 02/14/24 14: Baso % (Auto) 0.5 % 02/14/24 14: Neut # (Auto) 3.91 10^3/uL (1.8-7.7) 02/14/24 14:22 Lymph # (Auto) 1.4 10^3/uL (0.8-4.8) 02/14/24 14:22 [place] # (Auto) 0.4 10^3/uL (0.2-0.9) 02/14/24 14:22 Eos # (Auto) 0.1 10^3/uL (0.0-0.8) 02/14/24 14: Baso # (Auto) 0.0 10^3/uL (0.0-0.1) 02/14/24 14: Nucleated RBC % (auto) 0 % 02/14/24 14:22 Nucleated RBCs # 0.0 /100WBC 02/14/24 14:22 PT 13.30 SECONDS (12.1-14.9) 02/14/24 14:22 INR 0.98 (0.8-1.2) 02/14/24 14:22 Sodium 139 mmol/L (136-145) 02/14/24 14:22 Potassium 4.0 mmol/L (3.5-5.1) 02/14/24 14:22 Chloride 101 mmol/L (98-107) 02/14/24 14:22 Carbon Dioxide 26 mmol/L (22-29) 02/14/24 14:22 Anion Gap 16.0 (5-19) 02/14/24 14:22 BUN 14 mg/dL (6-20) 02/14/24 14:22 Creatinine 0.8 mg/dL (0.7-1.2) 02/14/24 14:22 GFR Calculation 108.2 mL/min (90-130) 02/14/24 14:22 Glucose 102 mg/dL (65-115) 02/14/24 14:22 Calculated Osmolality 289 mOsm/kg (285-295) 02/14/24 14:22 Calcium 9.7 mg/dL (8.5-10.5) 02/14/24 14:22 Total Bilirubin 0.7 mg/dL (0.15-1.2) 02/14/24 14:22 AST 17 U/L (0-40) 02/14/24 14:22 ALT 16 U/L (0-41) 02/14/24 14:22 Alkaline Phosphatase 80 U/L (40-130) 02/14/24 14:22 Troponin T Baseline < 6 ng/L (0-15) 02/14/24 14:22 Total Protein 7.1 g/dL (6.6-8.7) 02/14/24 14:22 Albumin 4.8 g/dL (3.5-5.2) 02/14/24 14:22 Globulin 2.3 g/dL (1.3-4.6) 02/14/24 14:22 All radiology interpretation(s) finalized by discharge EKG Data EKG 1: I personally reviewed and interpreted this EKG as follows: EKG interpretation date: 02/14/24 EKG interpretation time: 14:49 Interpretation: nsr hr [address] or t wave abnormalities qrs 92 qtc 404 Computer generated interpretation: Chest X-Ray 02/14/24 14:34 Impression: No acute lung process is identified. Head CT 02/14/24 14:34 IMPRESSION: No acute intracranial abnormality. Discharge Plan Discharge Patient Disposition: Home Clinical Impression: Near syncope Condition: Stable Prescriptions: No Action diclofenac sodium 50 mg tablet,delayed release (DR/EC) 50 mg PO Q8H PRN (Reason: pain) Qty: 14 0RF tizanidine 4 mg tablet 4 mg PO Q6H PRN (Reason: muscle spasticity) Qty: 20 0RF Rx Instructions: do not exceed 3 doses per 24 hrs prednisone 20 mg tablet 20 mg PO TID Qty: 15 0RF Rx Instructions: 1 p.o. 3 times daily x3 days, 1 p.o. twice daily x2 days, 1 p.o. daily x2 days Discharge Orders: Discharge ED (Routine); Ordered 02/14/24 Ordered By: Aakash Reilly Discharge Diet: Advance as tolerated Discharge Activity: Resume usual activity Patient Instructions: Near Syncope (ED) Stand Alone Forms: Work/School Release Coding Level of Care Code ED Telesales Supervisor for John Brewer
[2024-02-14] MEDS: sodium chloride 0.9% 1,000 ML 999 ML IV (14:40)
[2024-02-14] MEDS: ondansetron 2 mg/ML SDV 2 mL 4 MG IVP (14:42)
--- NOTE | 2024-02-14 14:49 | ECG_ITS ---
[facility] Test Date: 2024-02-14 Pat Name: Joe Francis Jr Department: Room: Gender: Male Membership Correspondent: : 1985 Requested By: Aakash Reilly Order Number: [id number] Evette MD: Adrien Casey M.D. Measurements Intervals [place] Rate: 60 P: 64 ND: 159 QRS: 38 QRSD: 92 T: 37 QT: 404 QTc: 404 Interpretive Statements SINUS RHYTHM No previous ECG available for comparison Electronically Signed On 02-14-2024 16:26:18 CDT by Adrien Casey M.D. [id number]
[2024-02-14 14:54] LABS: Basophils % 0.5 %; Eosinophils # 0.1 10^3/uL (0.0-0.8); Eosinophils % 1.4 %; Hematocrit 49.1 % (37-53); Lymphocytes # 1.4 10^3/uL (0.8-4.8); Lymphocytes % 24.3 %; Mean Corpuscular HGB Conc 33.4 g/dL (30-55); Mean Corpuscular Hemoglobin 28.6 pg (27-33); Mean Corpuscular Volume 85.5 fl (82-101); Mean Platelet Volume 10.1 fL (7.4-10.4); Monocytes # 0.4 10^3/uL (0.2-0.9); Monocytes % 6.7 %; Neutrophils # 3.91 10^3/uL (1.8-7.7); Neutrophils % 66.9 %; Nucleated Red Blood Cells % 0 %; Platelet Count 274 10^3/cmm (157-399); Red Blood Count 5.74 10^6/uL (3.85-5.65); Red Cell Distribution Width 12.1 % (12.1-15.1); White Blood Count 5.84 10^3/uL (3.29-11.43)
[2024-02-14 15:00] LABS: INR 0.98 (0.8-1.2)
[2024-02-14 15:05] LABS: Troponin(5th) Baseline < 6 ng/L (0-15)
[2024-02-14 15:07] LABS: Alanine Aminotransferase 16 U/L (0-41); Albumin Level 4.8 g/dL (3.5-5.2); Alkaline Phosphatase 80 U/L (40-130); Aspartate Amino Transferase 17 U/L (0-40); Blood Urea Nitrogen 14 mg/dL (6-20); Calcium 9.7 mg/dL (8.5-10.5); Carbon Dioxide 26 mmol/L (22-29); Chloride 101 mmol/L (98-107); Globulin 2.3 g/dL (1.3-4.6); Glomerular Filtration Rate 108.2 mL/min (90-130); Glucose 102 mg/dL (65-115); Osmolality Calculated 289 mOsm/kg (285-295); Sodium 139 mmol/L (136-145); Total Bilirubin 0.7 mg/dL (0.15-1.2); Total Protein 7.1 g/dL (6.6-8.7)
--- NOTE | 2024-02-14 15:23 | PC.NURSE ---
orthos vs completed and documented. pt ambulated in hallway w/o difficulty.
== END 2024-02-14 16:21 | disposition home or self-care (01) ==
PROVIDERS: Emergency Provider Emergency Medicine
DX: R55 Syncope and collapse (principal); Z72.0 Tobacco use
CPT/HCPCS: 70450; 71045; 80053; 84484; 85025; 85610; 93005; 96374; 99285; J2405; J7030

== ENCOUNTER 2024-03-27 11:51 | Outpatient (CLI) | payer OTHER, SELFPAY ==
--- NOTE | 2024-03-27 11:55 | MR_ITS ---
WS: [id number] MRI LUMBAR SPINE NONCONTRAST HISTORY: LOW BACK PAIN COMPARISON: None available. TECHNIQUE: Sagittal and axial multisequence imaging is submitted. L3 retrolisthesis by 3 mm. Mild disc space narrowing and desiccation at L3-4, L4-5 and L5-S1. No marrow edema or fracture. Conus terminates normally at L1-2 disc level. L1-L2: Normal. L2-L3: Small amount of fluid in the facet joints. No stenosis. L3-L4: Mild annular disc bulging with a LEFT foraminal disc protrusion. Mild disc contact on the suba rticular recesses. Mild ligamentum flavum and facet arthritis. Moderate to severe LEFT foraminal sten osis due to the disc protrusion which contacts the exiting LEFT L3 nerve root also. Only mild stenosi s on the RIGHT. L4-L5: Mild annular disc bulging with LEFT foraminal disc protrusion with annular fissures. Ligamentu m flavum and facet arthritis. There is disc contacting the traversing L5 nerve roots in the subarticu lar recesses. Severe LEFT foraminal stenosis with disc and osteophyte contacting the exiting LEFT L4 nerve root. Mild stenosis on the RIGHT. Mild subarticular recess and central stenosis. L5-S1: Mild annular disc bulging with a central disc protrusion with annular fissure. Mild bilateral foraminal narrowing, LEFT greater than RIGHT. Paravertebral soft tissues are negative. MR/MR lumbar spine wo con* [id number] IMPRESSION: 1. Moderate to severe LEFT foraminal stenosis at L3-4 and L4-5 due to disc pro trusions and facet joint arthropathy. Significant disc contact on the exiting L EFT L3 and L4 nerve roots. 2. L3-4: Mild RIGHT foraminal stenosis at L3-4. 3. L4-5: Mild disc contact on the traversing L5 nerve roots in the subarticula r recesses. Mild central and RIGHT foraminal stenosis. 4. L5-S1: Small central disc protrusion. Mild bilateral foraminal stenosis, LE FT greater than RIGHT.
== END 2024-03-27 11:52 | disposition home or self-care (01) ==
LOC: RAD 11:52
PROVIDERS: PCP Family Medicine; Visit Provider Family Medicine
DX: M47.896 Other spondylosis, lumbar region (principal); M99.63 Osseous and subluxation stenosis of intervertebral foramina of lumbar region
CPT/HCPCS: 72148

== ENCOUNTER 2024-04-03 14:42 | Outpatient (CLI) | payer OTHER, SELFPAY | END 2024-04-03 14:43 | disposition home or self-care (01) | LOC: SLEEP 14:42 | PROVIDERS: Visit Provider Family Medicine | DX: G47.10 Hypersomnia, unspecified (principal) | CPT/HCPCS: G0399 ==

== ENCOUNTER 2024-11-18 16:04 | Emergency (ER) | payer OTHER, SELFPAY ==
[2024-11-18 16:06] VITALS: BP 127/86; PULSE 61; RESP 17; TEMP 36.6; O2SAT 100; BMI 23.0
--- NOTE | 2024-11-18 16:21 | XRR_ITS ---
PROCEDURE INFORMATION: Exam: XR Chest Exam date and time: 11/18/2024 4:23 PM Age: 38 years old Clinical indication: Pain; Chest pressure; Additional info: Cp TECHNIQUE: Imaging protocol: Radiologic exam of the chest. Views: 1 view. COMPARISON: CR XR chest 1V portable [id number] 02/14/2024 3:15 PM FINDINGS: Lungs: Unremarkable. No consolidation. Pleural spaces: Unremarkable. No pleural effusion. No pneumothorax. Heart/Mediastinum: Unremarkable. No cardiomegaly. Bones/joints: Unremarkable. XR/XR chest 1V portable [id number] IMPRESSION: No acute findings.
--- NOTE | 2024-11-18 16:21 | ECG_ITS ---
[facility]24[facility]18 Pat Name: Joe Francis Jr Department: Room: Gender: Male Grading Supervisor: : 1985 Requested By: Aakash Reilly Order Number: [id number] Evette MD: Lilia Mtz M.D. Measurements Intervals [place] Rate: 70 P: 80 [place]: 164 QRS: 63 QRSD: 94 T: 49 QT: 393 QTc: 425 Interpretive Statements SINUS RHYTHM Compared to ECG 02/14/2024 14:49:03 No significant changes Electronically Signed On 11-18-2024 19:53:49 CDT by Lilia Mtz M.D. [id number]
[2024-11-18 16:53] LABS: Basophils % 0.5 %; Eosinophils # 0.1 10^3/uL (0.0-0.8); Eosinophils % 1.1 %; Hematocrit 45.9 % (37-53); Lymphocytes # 2.4 10^3/uL (0.8-4.8); Mean Corpuscular HGB Conc 34.2 g/dL (30-55); Mean Corpuscular Hemoglobin 29.2 pg (27-33); Mean Corpuscular Volume 85.5 fl (82-101); Monocytes # 0.5 10^3/uL (0.2-0.9); Monocytes % 6.3 %; Neutrophils # 5.01 10^3/uL (1.8-7.7); Neutrophils % 61.9 %; Nucleated Red Blood Cells % 0 %; Platelet Count 265 10^3/cmm (157-399); Red Blood Count 5.37 10^6/uL (3.85-5.65); Red Cell Distribution Width 12.2 % (12.1-15.1)
[2024-11-18 17:14] LABS: Troponin(5th) Baseline < 6 ng/L (0-15)
[2024-11-18 17:19] LABS: Alanine Aminotransferase 22 U/L (0-41); Albumin Level 4.9 g/dL (3.5-5.2); Alkaline Phosphatase 64 U/L (40-130); Anion Gap 19.8 (5-19); Aspartate Amino Transferase 20 U/L (0-40); Blood Urea Nitrogen 15 mg/dL (6-20); Calcium 9.8 mg/dL (8.5-10.5); Carbon Dioxide 22 mmol/L (22-29); Chloride 105 mmol/L (98-107); Creatinine Clr Calc Pharmacy 152.0229; Globulin 2.2 g/dL (1.3-4.6); Glomerular Filtration Rate 126.2 mL/min (90-130); Glucose 93 mg/dL (65-115); NT Pro B Type Natriuretic Pept < 36 pg/mL (0-125); Osmolality Calculated 297 mOsm/kg (285-295); Potassium 3.8 mmol/L (3.5-5.1); Sodium 143 mmol/L (136-145); Total Bilirubin 0.7 mg/dL (0.15-1.2); Total Protein 7.1 g/dL (6.6-8.7)
--- NOTE | 2024-11-18 17:29 | W.ED.CHESTPA ---
HPI - Chest Pain General: Chief Complaint: Chest Pain Stated Complaint: high bp (taken at home) Time Seen by Provider: 11/18/24 17:18 Source: patient Mode of arrival: ambulatory Limitations: no limitations History of Present Illness: 38-year-old male states over the last 2 days his blood pressure been running higher than normal he states it was in the 160s he states he is felt slightly anxious he states been having chest pain he feels like he cannot breathe at times he has a tight chest and has numbness all over states he feels improved currently denies any headaches denies any worse improving factors Associated symptoms: Deny abdominal pain, fever(s), nausea or vomiting Related Data Home Medications ?Medication ?Instructions ?Recorded ?Confirmed hydrocodone 7.5 mg-acetaminophen 1 tab PO Q8H PRN 08/20/24 09/19/24 325 mg tablet Previous Rx's ?Medication ?Instructions ?Recorded diclofenac sodium 50 mg 50 mg PO Q8H PRN pain #14 tabs 08/12/23 tablet,delayed release prednisone 20 mg tablet 20 mg PO TID #15 tabs 08/13/23 tizanidine 4 mg tablet 4 mg PO Q6H PRN muscle spasticity 08/13/23 #20 tabs Allergies Allergy/AdvReac Type Severity Reaction Status Date / Time cyclobenzaprine Allergy hives Verified 09/19/24 10:16 gabapentin Allergy Unknown Verified 09/19/24 10:16 meloxicam Allergy hives Verified 09/19/24 10:16 Review of Systems Const: Denies: fever(s), chills, body aches or change in appetite ENMT: Denies: throat pain or dental pain Card: Reports: chest pain GI: Denies: abdominal pain, nausea, vomiting or diarrhea Musc: Denies: neck pain or back pain Skin/Breast: Denies: rash Neuro: Denies: headache(s) PFSH ED PFSH: Medical History Open crushing injury of finger Crushing injury of finger of left hand Cellulitis of multiple sites of hand and fingers Eczema of both hands Social History Smoking and tobacco/nicotine status: never used tobacco/nicotine (vapes) Substance/Drug Use: current Physical Exam Const: COMMON NORMALS: no acute distress, patient oriented x3 and healthy appearing HENMT: COMMON NORMALS: normocephalic and atraumatic HEAD & SCALP: normocephalic and atraumatic Eye: COMMON NORMALS: conjunctivae normal CONJUNCTIVA: Yes conjunctivae normal Neck/C-Spine: COMMON NORMALS: full ROM and supple Chest: COMMONS NORMALS: normal inspection of the chest Resp: COMMON NORMALS: normal respiratory effort, No retractions, No use of accessory muscles and clear to auscultation bilaterally AUSCULTATION: clear to auscultation bilaterally Cardio: COMMON NORMALS: regular rate, regular rhythm and No murmurs present (Cardio) RATE: regular rate RHYTHM: regular rhythm Extremity: COMMON NORMALS: normal to inspection and full ROM Neuro: COMMON NORMALS: patient oriented x3, moves all extremities and no focal motor deficits Psych: COMMON NORMALS: mental status grossly normal, Normal thought process present and cooperative THOUGHT PROCESS: Normal thought process present Skin: COMMON NORMALS: no rashes or lesions noted and no wounds GENERAL SKIN EXAM: no rashes or lesions noted Course Vital Signs: Vital signs: Vital Signs Temperature 97.8 F 11/18/24 16:06 Pulse Rate 61 11/18/24 16:06 Respiratory Rate 17 11/18/24 16:06 Blood Pressure 127/86 11/18/24 16:06 Pulse Oximetry 100 11/18/24 16:06 Oxygen Delivery Me thod Room Air 11/18/24 16:06 MDM - Chest Pain Medical Decision Making Patient presents with concerns for hypertension along with chest pain his chest pain is atypical in nature he is well-appearing here troponins negative his blood pressures been normal here he stable for discharge follow-up with PCP return if worsening Medical Records I reviewed the patient's medical records. Lab Data I reviewed the patient's lab results. 11/18/24 16:37 11/18/24 16:37 Laboratory Results WBC 8.10 10^3/uL (3.29-11.43) 11/18/24 16:37 RBC 5.37 10^6/uL (3.85-5.65) 11/18/24 16:37 Hgb 15.70 g/dL (11.27-16.99) 11/18/24 16:37 Hct 45.9 % (37-53) 11/18/24 16:37 MCV 85.5 fl (82-101) 11/18/24 16:37 MCH 29.2 pg (27-33) 11/18/24 16:37 MCHC 34.2 g/dL (30-55) 11/18/24 16:37 RDW 12.2 % (12.1-15.1) 11/18/24 16:37 Plt Count 265 10^3/cmm (157-399) 11/18/24 16:37 MPV 10.0 fL (7.4-10.4) 11/18/24 16:37 Neut % (Auto) 61.9 % 11/18/24 16:37 Lymph % (Auto) 30.0 % 11/18/24 16:37 [place] % (Auto) 6.3 % 11/18/24 16:37 Eos % (Auto) 1.1 % 11/18/24 16:37 Baso % (Auto) 0.5 % 11/18/24 16:37 Neut # (Auto) 5.01 10^3/uL (1.8-7.7) 11/18/24 16:37 Lymph # (Auto) 2.4 10^3/uL (0.8-4.8) 11/18/24 16:37 [place] # (Auto) 0.5 10^3/uL (0.2-0.9) 11/18/24 16:37 Eos # (Auto) 0.1 10^3/uL (0.0-0.8) 11/18/24 16:37 Baso # (Auto) 0.0 10^3/uL (0.0-0.1) 11/18/24 16:37 Nucleated RBC % (auto) 0 % 11/18/24 16:37 Nucleated RBCs # 0.0 /100WBC 11/18/24 16:37 Sodium 143 mmol/L (136-145) 11/18/24 16:37 Potassium 3.8 mmol/L (3.5-5.1) 11/18/24 16:37 Chloride 105 mmol/L (98-107) 11/18/24 16:37 Carbon Dioxide 22 mmol/L (22-29) 11/18/24 16:37 Anion Gap 19.8 (5-19) H 11/18/24 16:37 BUN 15 mg/dL (6-20) 11/18/24 16:37 Creatinine 0.7 mg/dL (0.7-1.2) 11/18/24 16:37 GFR Calculation 126.2 mL/min (90-130) 11/18/24 16:37 Glucose 93 mg/dL (65-115) 11/18/24 16:37 Calculated Osmolality 297 mOsm/kg (285-295) H 11/18/24 16:37 Calcium 9.8 mg/dL (8.5-10.5) 11/18/24 16:37 Total Bilirubin 0.7 mg/dL (0.15-1.2) 11/18/24 16:37 AST 20 U/L (0-40) 11/18/24 16:37 ALT 22 U/L (0-41) 11/18/24 16:37 Alkaline Phosphatase 64 U/L (40-130) 11/18/24 16:37 Troponin T Baseline < 6 ng/L (0-15) 11/18/24 16:37 NT-Pro-B Natriuret Pep < 36 pg/mL (0-125) 11/18/24 16:37 Total Protein 7.1 g/dL (6.6-8.7) 11/18/24 16:37 Albumin 4.9 g/dL (3.5-5.2) 11/18/24 16:37 Globulin 2.2 g/dL (1.3-4.6) 11/18/24 16:37 All radiology interpretation(s) finalized by discharge EKG Data EKG 1: I personally reviewed and interpreted this EKG as follows: EKG interpretation date: 11/18/24 EKG interpretation time: 16:08 Interpretation: nsr hr [address] elevation qrs 94 qtc 413 Discharge Plan Discharge Patient Disposition: Home Clinical Impression: Chest pain, Hypertension Condition: Stable Prescriptions: No Action hydrocodone-acetaminophen 7.5-325 mg tablet 1 tab PO Q8H PRN diclofenac sodium 50 mg tablet,delayed release (DR/EC) 50 mg PO Q8H PRN (Reason: pain) Qty: 14 0RF tizanidine 4 mg tablet 4 mg PO Q6H PRN (Reason: muscle spasticity) Qty: 20 0RF Rx Instructions: do not exceed 3 doses per 24 hrs prednisone 20 mg tablet 20 mg PO TID Qty: 15 0RF Rx Instructions: 1 p.o. 3 times daily x3 days, 1 p.o. twice daily x2 days, 1 p.o. daily x2 days Discharge Orders: Discharge ED (Routine); Ordered 11/18/24 Ordered By: Aakash Reilly Referrals: Mario Koehler MD [Primary Care Provider, [facility]] - 4-7 days Discharge Diet: Advance as tolerated Discharge Activity: Resume usual activity Patient Instructions: Chest Pain (ED), Hypertension (ED) Print Language: Namibian Coding Level of Care Code ED Upholstery Technician for Jonh Brewer
[2024-11-18 17:45] VITALS: BP 128/86; PULSE 58; O2SAT 100
== END 2024-11-18 17:46 | disposition home or self-care (01) ==
PROVIDERS: Emergency Provider Emergency Medicine; PCP Family Medicine
DX: R07.9 Chest pain, unspecified (principal); I10 Essential (primary) hypertension; Z88.8 Allergy status to other drugs, medicaments and biological substances
CPT/HCPCS: 36415; 71045; 80053; 83880; 84484; 85025; 93005; 99285

== ENCOUNTER 2025-04-27 11:58 | Emergency (ER) | payer OTHER, SELFPAY ==
[2025-04-27 12:06] VITALS: BP 126/92; PULSE 72; RESP 18; TEMP 36.7; O2SAT 96; BMI 25.1
--- OUTSIDE RECORDS SUMMARY | 2025-04-27 12:11 | XMS_ITS | Encounter Summary ---
Author Organization [facility] Address [address] [place] [address] Care Team Providers Care Computer Systems Integrator Name Role Phone Unavailable Primary Care Provider Unavailabl e Encounter Details Date Type Department Care Team (Late st Contact Info) Description 01/14/2015 Nurse Triage Report [id number] ABSTRACTION Willie Arshad, RN Social History Tobacco Use Types Packs/Day Years Used Date Smoking Tobacco: Every Day Cigarettes 1 10 Alcohol Use Standard Drinks/Week Comments Yes 0 (1 standard drink = 0.6 oz pur e alcohol) occasional beer Sex and Gender Information Value Date Recorded Sex Assigned at Not on file 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 <<<<<<<< TRIAGE NOTE >>>>>>>> Triage Note: Bead Wire Taper Willie Arshad added this note on Jan 14 2015 9:03PM: Answered patient's questions re: the color of his blood. <<<<<<<< TRIAGE/OUTCOME >>>>>>>> Guideline Title: Information Only Call; No Symptom Triage (Adult) Recommended Disposition: Provide Information or Advice Only Original Inclination: Self Management Intended Action: Self Management Physician Contacted: No Health information question; person denies any symptoms, no triage required. Information provided from approved references or clinical experience. ? YES documented in this encounter Plan of Treatment Not on file documented as of this encounter Visit Diagnoses Not on filedocumented in this encounter
--- OUTSIDE RECORDS SUMMARY | 2025-04-27 12:11 | XMS_ITS | Encounter Summary ---
Author Organization [facility] Address [address] [place] [address] Care Team Providers Care Manager Flight Name Role Phone Unavailable Primary Care Provider Olive e Encounter Details Date Type Department Care Team (Late st Contact Info) Description 04/24/2025 External Device Data STL ABSTRACTION Provider, Abstract NO ADDRESS ON FILE Social History Tobacco Use Types Packs/Day Years Used Date Smoking Tobacco: Former Cigarettes 3 26 1 6 - 2021 Alcohol Use Standard Drinks/Week Comments Not Currently 0 (1 standard drink = 0.6 oz pur e alcohol) Feeling Safe Answer Date Recorded Are you in a relationship wi th someone who hurts you emotionally and/or physically? No 01/22/2025 Food Insecurity Answer Date Recorded Patient needs follow up regardin 12/25/2024 Transportation Needs Answer Date Record ed Patient needs follow up regardin 12/25/2024 Utility Needs Answer Date Recorded Patient needs follow up regardin 12/25/2024 Sex and Gender Information Value Date Recorded Sex Assigned at Not on file Legal Sex Male 5:14 PM FIRE INVESTIGATION LIEUTENANT Gender Identity Not on file Sexual Orientation Not on file documented as of this encounter Plan of Treatment Upcoming Encounters Date Type Department Care Team (Late st Contact Info) Description 06/17/2025 1:00 PM FIRE INVESTIGATION LIEUTENANT Office Visit [facility] Spine Neurosurgery [address] [place] [address] Mahnaz Lowry PA [address] [place] [address] documented as of this encounter Visit Diagnoses Not on filedocumented in this encounter
--- OUTSIDE RECORDS SUMMARY | 2025-04-27 12:11 | XMS_ITS | Encounter Summary ---
Author Organization [facility] Address [address] 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
--- OUTSIDE RECORDS SUMMARY | 2025-04-27 12:11 | XMS_ITS | Encounter Summary ---
Author Organization [facility] Address [address] [place] [address] Care Team Providers Care Director Print Name Role Phone Max Porras MD Primary Care Provider Encounter Details Date Type Department Care Team (Late st Contact Info) Description 06/02/2005 Emergency [facility] Emergency Department [address] [place] [phone] Jonathan Landa MD NO ADDRESS ON FILE PAINFUL RESPIRATION (Primary Dx) Social History Tobacco Use Types Packs/Day Years Used Date Smoking Tobacco: Never Assessed Sex and Gender Information Value Date Recorded Sex Assigned at Not on file Legal Sex Male 4:11 AM MEDICAL LABORATORY ASSISTANT Gender Identity Not on file Sexual Orientation Not on file documented as of this encounter Plan of Treatment Not on file documented as of this encounter Procedures Procedure Name Priority Date/Time Associated Diagnosis Comments CBC WITH DIFFERENTIAL Routine 06/02/2005 2:57 PM MEDICAL LABORATORY ASSISTANT D-DIMER Routine 06/02/2005 2:57 PM MEDICAL LABORATORY ASSISTANT BASIC METABOLIC PANEL Routine 06/02/2005 2:57 PM MEDICAL LABORATORY ASSISTANT documented in this encounter Results * (ABNORMAL) CBC WITH DIFFERENTIAL (06/02/2005 2:57 PM MEDICAL LABORATORY ASSISTANT) WBC 6.0 4.5 - 12.5 K/ul INTERFACE SYSTEM RBC 5.55 4.60 - 6.20 Mil/ul INTERFACE SYSTEM HEMOGLOBIN 16.2 14.0 - 18.0 g/dL INTERFACE SYSTEM HEMATOCRIT 46.9 41.0 - 53.0 % INTERFACE SYSTEM MCV 84.5 84.0 - 103.0 Fl INTERFACE SYSTEM MCH 29.2 27.0 - 34.0 pg INTERFACE SYSTEM MCHC 34.5 30.0 - 35.0 g/dL INTERFACE SYSTEM RDW 12.3 11.0 - 14.5 % INTERFACE SYSTEM PLATELETS 222 140 - 440 K/ul INTERFACE SYSTEM MPV 10.4 8.9 - 12.8 Fl INTERFACE SYSTEM NEUTROPHILS 59.2 42.2 - 75.2 % INTERFACE SYSTEM LYMPHOCYTES 29.2 24.0 - 44.0 % INTERFACE SYSTEM MONOCYTES 10.9(H) 2.0 - 10.0 % INTERFACE SYSTEM EOSINOPHILS 0.5 0.0 - 7.0 % INTERFACE SYSTEM BASOPHILS 0.2 0.0 - 1.0 % INTERFACE SYSTEM NEUTROPHIL ABSOLUTE 3.6 2.0 - 8.0 K/uL INTERFACE SYSTEM LYMPHOCYTE ABSOLUTE 1.8 1.2 - 4.0 K/ul INTERFACE SYSTEM MONOCYTE ABSOLUTE 0.7(H) 0.1 - 0.6 K/ul INTERFACE SYSTEM EOSINOPHIL ABSOLUTE 0.0 0.0 - 0.7 K/ul INTERFACE SYSTEM BASOPHILS ABSOLUTE 0.0 0.0 - 0.2 K/ul INTERFACE SYSTEM 06/02/2005 2:57 PM MEDICAL LABORATORY ASSISTANT Jonathan Landa MD HEMATOLOGY ORDERABLES Loly l Result Performing Organization Address [facility] Phone Number INTERFACE SYSTEM Refer to clinic/hospital department * D-DIMER (06/02/2005 2:57 PM MEDICAL LABORATORY ASSISTANT) [facility] D-DIMER QUANT <0.2 0.0 - 0.5 mcg/mL INTERFACE SYSTEM 06/02/2005 2:57 PM MEDICAL LABORATORY ASSISTANT Jonathan Landa MD HEMATOLOGY ORDERABLES Loly l Result Performing Organization Address [facility] de Phone Number INTERFACE SYSTEM Refer to clinic/hospital department * BASIC METABOLIC PANEL (06/02/2005 2:57 PM MEDICAL LABORATORY ASSISTANT) Pathologist [facility] GLUCOSE 84 70 - 110 mg/dL INTERFACE SYSTEM BUN 11 9 - 20 mg/dL INTERFACE SYSTEM CREATININE 0.9 0.7 - 1.5 mg/dL INTERFACE SYSTEM SODIUM 142 136 - 145 mEq/L INTERFACE SYSTEM POTASSIUM 3.9 3.5 - 5.0 mEq/L INTERFACE SYSTEM CHLORIDE 105 95 - 110 mEq/L INTERFACE SYSTEM CO2 27 22 - 32 mmol/l INTERFACE SYSTEM ANION GAP 14 9 - 20 mEq/L INTERFACE SYSTEM OSMOLALITY, CALCULATED 290 275 - 295 mOsm/Kg INTERFACE SYSTEM CALCIUM 9.1 8.4 - 10.5 mg/dL INTERFACE SYSTEM 06/02/2005 2:57 PM MEDICAL LABORATORY ASSISTANT Jonathan Landa MD CHEMISTRY ORDERABLES Final Result INTERFACE SYSTEM Refer to clinic/hospital department documented in this encounter Visit Diagnoses Diagnosis Painful respiration- Primary documented in this encounter Care Teams Director Print Relationship Specialty Start Date End Date Max Porras MD [address] [place], [place] [address] PCP - General Family Practice 02/14/12 06/12/14 documented as of this encounter
--- OUTSIDE RECORDS SUMMARY | 2025-04-27 12:11 | XMS_ITS | Encounter Summary ---
Author Organization [facility] Address [address] [place] [address] Care Team Providers Care Radiation Oncology Nurse Name Role Phone Max Porras MD Primary Care Provider Encounter Details Date Type Department Care Team (Latest Contact Info) Description 06/02/2005 Outpatient Historical [facility] SHORTNESS OF BREATH (Primary Dx) Social History Tobacco Use Types Packs/Day Years Used Date Smoking Tobacco: Never Assessed Sex and Gender Information Value Date Recorded Sex Assigned at Not on file Legal Sex Male 4:11 AM ARCHEOLOGIST Gender Identity Not on file Sexual Orientation Not on file documented as of this encounter Plan of Treatment Not on file documented as of this encounter Visit Diagnoses Diagnosis Shortness of breath- Primary documented in this encounter Care Teams Radiation Oncology Nurse Relationship Specialty Start Date End Date Max Porras MD [address] [place] [address] PCP - General Family Practice 02/14/12 06/12/14 documented as of this encounter
--- OUTSIDE RECORDS SUMMARY | 2025-04-27 12:11 | XMS_ITS | Clinical Summary ---
Author Organization [facility] Address [address] [place] [address] Phone Care Team Providers Care Yard Supervisor Cotton Gin Name Role Phone Unavailable Primary Care Provider Unavailabl e Allergies Active Allergy Reactions Criticality Noted Date Comments Cyclobenzaprine Rash,Itching Low 11/03/2010 Hymenoptera Allergenic Extract Anaphylaxis High 02/01 Medications hydrocortisone (CORTAID) 1 % Cream Apply to affected area 2 times daily. 3 Gram None 07/08/2014 Active ondansetron (ZOFRAN ODT) 4 mg Tablet, Rapid Dissolve Take 1 Tablet (4 mg) by mouth every 8 hours as needed for Nausea/Emesis Dissolve tablet on top of tongue, then swallow with saliva.. 4 Tablet 01/29/2018 Active Active Problems Problem Noted Date Diagnosed Date Left leg weakness 02/14/2012 Facial weakness 02/14/2012 Dysarthria 02/14/2012 Headache(784.0) 02/14/2012 Ataxia 02/14/2012 Bipolar disorder 02/14/2012 Schizophrenia 02/14/2012 Immunizations Immunization Administration Dates Next Due (M-M-R II/PRIORIX)(12 MO UP) MEASLES, MUMPS AND RUBELLA VIRUS VACCINE, 0.5 ML IM/SUBCUT 06/08/1991 (TDVAX)(7 YRS UP) TETANUS AN D DIPHTHERIA TOXOIDS, ADSORBED (2 LF OF TETANUS TOXOID AND 2 LF OF DIPHTHERIA TOXOID), 0.5ML (PF), IM 05/17/2002 Dt Dtp Dtap Vaccine 06/08/1991,10/13/1989 Hepatitis A Vaccine 05/25/2006 Hepatitis B Vaccine 04/27/1999,09/19/1998,1995 IPV/OPV 06/08/1991,10/13/1989 Social History Tobacco Use Types Packs/Day Years Used Date Smoking Tobacco: Every Day Cigarettes 1 10 Tobacco Cessation:Ready to Q uit: Yes; Counseling Given: Yes Alcohol Use Standard Drinks/Week Comments Yes 0 (1 standard drink = 0.6 oz pur e alcohol) occasional beer Sex and Gender Information Value Date Recorded Sex Assigned at Not on file 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 Gender Identity Not on file Sexual Orientation Not on file Occupation Industry Job Start Date Job End Date Not on file Not on file Not on file Not on file Not on file Not on file Not on file Not on file Last Filed Vital Signs Vital Sign Reading Time Taken Comments Blood Pressure 109/64 01/29/2018 12:45 PM CDT Pulse 61 01/29/2018 12:54 PM CDT Temperature 36.7 C (98 F) 01/29/2018 9:46 AM CDT Respiratory Rate 19 01/29/2018 9:46 AM CDT Oxygen Saturation 99% 01/29/2018 12:54 PM CDT Inhaled Oxygen Concentration - - Weight 92.5 kg (204 lb) 07/18/2014 5:11 PM ROUGHER MACHINE OPERATOR Height 180.3 cm (5' 11 ) 07/18/2014 5:11 PM ROUGHER MACHINE OPERATOR Body Mass Index 28.45 07/18/2014 5:11 PM ROUGHER MACHINE OPERATOR Plan of Treatment Health Maintenance Due Date Last Done Comments DTAP/TDAP/TD VACCINES (4 - Tdap) 05/18/2002 05/17/2002, 06/08/1991, 10/13/1989 HPV VACCINES (1 - 3-dose SCD M series) 2012 INFLUENZA VACCINE (#1) 2025 HEPATITIS B VACCINES Completed 04/27/1999, 09/19/1998, 08/02/1995 Advance Directives For more information, please contact: [phone] * Full Code (Latest Code Status on File) Date Activated Date Inactivated Comments 02/14/2012 2:07 PM 02/16/2012 1:46 PM
--- OUTSIDE RECORDS SUMMARY | 2025-04-27 12:11 | XMS_ITS | Encounter Summary ---
Author Organization [facility] Address [address] [place] [address] Care Team Providers Care Plant And Instrument Engineer Name Role Phone Unavailable Primary Care Provider Unavailabl e Encounter Details Date Type Department Care Team (Late st Contact Info) Description 11/30/2014 Nurse Triage Report [id number] ABSTRACTION Jenn Herzog, RN Social History Tobacco Use Types Packs/Day Years Used Date Smoking Tobacco: Every Day Cigarettes 1 10 Alcohol Use Standard Drinks/Week Comments Yes 0 (1 standard drink = 0.6 oz pur e alcohol) occasional beer Sex and Gender Information Value Date Recorded Sex Assigned at Not on file Legal Sex Male 4:11 AM 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 <<<<<<<< TRIAGE NOTE >>>>>>>> Triage Note: Sound Truck Operator Jenn Herzog added this note on Nov 30 2014 11:47AM: Caller was given care advice and medication recommendations per [facility] Health Education. <<<<<<<< TRIAGE/OUTCOME >>>>>>>> Guideline Title: Medication Questions - Adult Recommended Disposition: Provide Health Information Original Inclination: Self Management Intended Action: Self Management Physician Contacted: No Caller has medication question(s) that was answered with available resources ? YES documented in this encounter Plan of Treatment Not on file documented as of this encounter Visit Diagnoses Not on filedocumented in this encounter
--- OUTSIDE RECORDS SUMMARY | 2025-04-27 12:11 | XMS_ITS | Encounter Summary ---
Author Organization [facility] Address [address] [place] [address] Care Team Providers Care Coal Crusher Operator Name Role Phone Max Porras MD Primary Care Provider [phone] Encounter Details Date Type Department Care Team (Latest Contact Info) Description 06/15/1999 Outpatient Historical [facility] Medicine- [address] [phone] Farhat Brar MD [address] [facility] [address] [place] [address] Abdominal pain, unspecified site (Primary Dx); Other malaise and fatigue Social History Tobacco Use Types Packs/Day Years Used Date Smoking Tobacco: Never Assessed Sex and Gender Information Value Date Recorded Sex Assigned at Not on file Legal Sex Male 4:11 AM PIPE BENDER Gender Identity Not on file Sexual Orientation Not on file documented as of this encounter Plan of Treatment Not on file documented as of this encounter Visit Diagnoses Diagnosis Abdominal pain, unspecified site- Primary Other malaise and fatigue documented in this encounter Care Teams Coal Crusher Operator Relationship Specialty Start Date End Date Max Porras MD [address] [place] [address] PCP - General Family Practice 02/14/12 06/12/14 documented as of this encounter
--- OUTSIDE RECORDS SUMMARY | 2025-04-27 12:11 | XMS_ITS | Clinical Summary ---
[facility] Organization [facility] Address [address] 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 4-6 times daily for anxiety Active OMEPRAZOLE ORAL Take by mouth 1 time daily as needed. Active ranitidine HCl (ZANTAC ORAL) Take by mouth 1 time daily as needed. Active HYDROcodone-aceta minophen (NORCO) 10-325 mg TabletIndications :Lumbar disc herniation Take 1 Tablet by mouth every 4 hours as needed for Pain, Moderate. Max Daily Amount: 6 Tablets 42 Tablet 01/22/2025 2:53 PM CDT Active Active Problems Problem Noted Date Diagnosed Date Lumbar disc herniation 12/25/2024 Preoperative general physical examination 2024 Dyslipidemia 12/25/2024 COPD (chronic obstructive pulmonary disease) GERD without esophagitis 12/25/2024 History of tobacco use 12/25/2024 History of migraine 12/25/2024 Bipolar disorder 02/14/2012 Schizophrenia 02/14/2012 Resolved Problems Problem Noted Date Diagnosed Date Resolved Date Facial weakness 02/14/2012 12/25/2024 Ataxia 02/14/2012 12/25/2024 Dysarthria 02/14/2012 12/25/2024 Left leg weakness 02/14/2012 12/25/2024 Encounters Date Type Department Care Team Description 04/24/2025 External Device Data STL ABSTRACTION Provider, Abstract 04/16/2025 External Device Data STL ABSTRACTION Provider, Abstract 03/18/2025 2:00 PM CDT Office Visit [facility] [address] [place] [address] Mahnaz Lowry PA H/O lumbar discectomy (Primary Dx) 03/05/2025 External Device Data STL ABSTRACTION Provider, Abstract 03/05/2025 External Device Data STL ABSTRACTION Provider, Abstract 02/19/2025 External Device Data STL ABSTRACTION Provider, Abstract 02/12/2025 External Device Data STL ABSTRACTION Provider, Abstract 02/05/2025 10:20 AM CDT Office Visit [facility] [address] [place] [address] Mahnaz Lowry PA Left leg weakness (Primary Dx); Acute bilateral low back pain with sciatica, sciatica laterality unspecified from Last 3 Months Immunizations Immunization Administration Dates Next Due (M-M-R [...] Smoking Tobacco: Former Cigarettes 3 26 1 996 - 2021 Tobacco Cessation:Counseling Given: Not Answered Alcohol Use Standard Drinks/Week Comments Not Currently [...] on file 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 Gender Identity Not on file Sexual Orientation Not on file Last Filed Vital Signs Vital Sign Reading Time Taken Comments Blood Pressure 120/72 03/18/2025 2:05 PM CDT Pulse 55 01/22/2025 3:43 PM CDT Temperature 36.4 C (97.5 F) 01/22/2025 3:43 PM CDT Respiratory Rate 10 01/22/2025 3:20 PM CDT Oxygen Saturation 100% 01/22/2025 3:43 PM CDT Inhaled Oxygen Concentration - - Weight 79.4 kg (175 lb) 03/18/2025 2:05 PM CDT Height 180.3 cm (5' 11 ) 03/18/2025 2:05 PM CDT Body Mass Index 24.41 03/18/2025 2:05 PM CDT Plan of Treatment Upcoming Encounters Date Type Department Care Team (Late st Contact Info) Description 06/17/2025 1:00 PM LEGAL COLLECTOR Office Visit [facility] [address] [place] [id number] Mahnaz Lowry, PA [address] [place] [address] Health Maintenance Due Date Last Done Comments HPV VACCINES (1 - 3-dose SCD M series) 2012 INFLUENZA VACCINE (#1) 2025 COVID-19 Vaccine (3 - 2024-2 6 season) 2025 01/31/2021, 01/03/2021 DTAP/TDAP/TD VACCINES (6 - T d or Tdap) 03/25/2027 03/25/2017, 05/17/2002, 06/08/1991, Additional history exists HEPATITIS B VACCINES Completed 04/27/1999, 04/27/1999, 09/19/1998, Additional history exists Medical Devices Implanted Type Area Network Controller Device Identifier Shelf Expiration Date Model / Serial / Lot Hemostatic Surgifoam 1gm 1977 - [id number] Implanted:Qty: 1 on 01/22/2025 by Maria Luisa Levi MD at [facility] Hemostatic N/A: Spine Lumbar [employer] [id number] 08/16/20261977 / [id number] Insurance SUREST [id number] RX MEDIMPACT Member Subscriber Plan / Payer (Ef fective 2025-Present) Name:Joe Francis Relation to Subscriber:Self Name:Joe Francis Subscriber ID:Not on file Payer ID:Not on file Group ID:[id number] Type:RX Commercial Address: [place] [address]
[2025-04-27 12:37] VITALS: BP 134/94; PULSE 69; O2SAT 97
--- NOTE | 2025-04-27 12:57 | CTR_ITS ---
PROCEDURE INFORMATION: Exam: CT Lumbar Spine Without Contrast Exam date and time: 04/27/2025 1:02 PM Age: 39 years old Clinical indication: Low back pain; Prior surgery; Surgery date: 1-6 months; Additional info: Severe pain, surgery 01/22 TECHNIQUE: Imaging protocol: Computed tomography of the lumbar spine without contrast. Radiation optimization: All CT scans at this facility use at least one of these dose optimization techniques: automated exposure control; mA and/or kV adjustment per patient size (includes targeted exams where dose is matched to clinical indication); or iterative reconstruction. COMPARISON: MR lumbar spine wo con* [id number] 03/27/2024 12:02 PM RADIATION DOSE METRICS: Total DLP (mGy-cm): 599.48 FINDINGS: Bones/joints: Postsurgical changes of left L4-L5 hemilaminectomy. Unfused posterior elements of S1 inflammatory changes in the left paracentral region at L4-L5, that might represent postsurgical changes, however residual disc can not be excluded. There is moderate narrowing of the left neural foramen and mild narrowing of the right neural foramen at L4-L5 level. Soft tissues: Subcutaneous inflammatory changes at L4-L5, postop. CT/CT lumbar spine wo con* [id number] IMPRESSION: Postsurgical changes of left L4-L5 discectomy with inflammatory changes at this level in the left aspect of the spinal canal that might be postop versus disc disease.
--- NOTE | 2025-04-27 12:58 | W.ED.BACK ---
HPI - Back Pain/Injury General: Chief Complaint: Back Pain/Injury Stated Complaint: low back pain (01/22 surg) Time Seen by Provider: 04/27/25 12:44 History of Present Illness: Patient is a 39-year-old gentleman that had lumbar Left L3 and L4 transforaminal LEONID on 01/22, presents to the emergency room due to severe low back pain. 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 He has pain from his tailbone moving superior up to his head and causing a headache. He states this was his first day back to work. He does have some pain radiating to bilateral butt cheeks. Denies any saddle anesthesia, incontinence. Associated symptoms: Deny abdominal pain, chills, fever(s), nausea or vomiting Related Data Home Medications ?Medication ?Instructions ?Recorded ?Confirmed hydrocodone 7.5 mg-acetaminophen 1 tab PO Q8H PRN 08/20/24 09/19/24 325 mg tablet Previous Rx's ?Medication ?Instructions ?Recorded diclofenac sodium 50 mg 50 mg PO Q8H PRN pain #14 tabs 08/12/23 tablet,delayed release prednisone 20 mg tablet 20 mg PO TID #15 tabs 08/13/23 tizanidine 4 mg tablet 4 mg PO Q6H PRN muscle spasticity 08/13/23 #20 tabs ketorolac 10 mg tablet 10 mg PO Q8H PRN pain 5 days #14 04/27/25 tabs methocarbamol 750 mg tablet 750 mg PO Q8H PRN muscle spasm #30 04/27/25 tabs methylprednisolone 4 mg tablets in See Rx Instructions PO .COMPLEX 04/27/25 a dose pack (Medrol (Bhupendra)) #21 ea Allergies Allergy/AdvReac Type Severity Reaction Status Date / Time cyclobenzaprine Allergy hives Verified 09/19/24 10:16 gabapentin Allergy Unknown Verified 09/19/24 10:16 meloxicam Allergy hives Verified 09/19/24 10:16 Review of Systems General: Reports: 10 or more systems reviewed and unremarkable except in HPI and below Const: Denies: fever(s), chills, body aches or change in appetite ENMT: Denies: throat pain or dental pain Card: Reports: chest pain Resp: Denies: dyspnea or productive cough GI: Denies: abdominal pain, nausea, vomiting or diarrhea Musc: Reports: back pain; Denies: neck pain, extremity pain or extremity swelling Skin/Breast: Denies: rash Neuro: Denies: headache(s) Psych: Denies: anxiety or depression PFS ED PFSH: Medical History (Updated 04/27/25 @ 13:42 by KARLO Turner) Open crushing injury of finger Crushing injury of finger of left hand Cellulitis of multiple sites of hand and fingers Eczema of both hands Social History Smoking and tobacco/nicotine status: never used tobacco/nicotine (vapes) Substance/Drug Use: current Physical Exam Const: COMMON NORMALS: no acute distress, patient oriented x3 and healthy appearing HENMT: COMMON NORMALS: normocephalic and atraumatic HEAD & SCALP: normocephalic and atraumatic Eye: COMMON NORMALS: conjunctivae normal CONJUNCTIVA: Yes conjunctivae normal Neck/C-Spine: COMMON NORMALS: full ROM and supple Chest: COMMONS NORMALS: normal inspection of the chest Resp: COMMON NORMALS: normal respiratory effort, No retractions, No use of accessory muscles and clear to auscultation bilaterally AUSCULTATION: clear to auscultation bilaterally Cardio: COMMON NORMALS: regular rate, regular rhythm and No murmurs present (Cardio) RATE: regular rate RHYTHM: regular rhythm : COMMON NORMALS: Yes no CVA tenderness BLADDER/KIDNEY EXAM: Yes no CVA tenderness Back/Pelvis: COMMON NORMALS: no CVA tenderness and thoracic and lumbar spine normal to inspection LUMBAR SPINE/LOWER BACK: Yes ROM limited, Yes pain with ROM, Yes lumbar spinal tenderness Lumbar spinal tenderness location: L3 and L4 and Yes paraspinal muscle tenderness Lumbar paraspinal muscle tenderness: right Right lumbar paraspinal muscle tenderness: L3 and L4 Extremity: COMMON NORMALS: normal to inspection and full ROM Neuro: COMMON NORMALS: patient oriented x3, moves all extremities and no focal motor deficits Psych: COMMON NORMALS: mental status grossly normal, Normal thought process present and cooperative THOUGHT PROCESS: Normal thought process present Skin: COMMON NORMALS: no rashes or lesions noted and no wounds GENERAL SKIN EXAM: no rashes or lesions noted Course Vital Signs: Vital signs: Vital Signs Temperature 98.0 F 04/27/25 12:06 Pulse Rate 69 04/27/25 12:37 Respiratory Rate 18 04/27/25 12:06 Blood Pressure 134/94 04/27/25 12:37 Pulse Oximetry 97 04/27/25 12:37 Oxygen Delivery Me thod Room Air 04/27/25 12:37 MDM - Back Pain/Injury Medical Decision Making Patient is a pleasant 39-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 On CT there is no injury to his recent surgery/L4/L5 discectomy, however there is localized inflammatory changes which I suspect is the culprit. Will cool off with anti-inflammatory and muscle relaxer. Warnings given. Medical Records I reviewed the patient's medical records. Labs Radiology Impressions Lumbar Spine CT 04/27/25 12:57 IMPRESSION: Postsurgical changes of left L4-L5 discectomy with inflammatory changes at this level in the left aspect of the spinal canal that might be postop versus disc disease. All radiology interpretation(s) finalized by discharge Discharge Plan Discharge Patient Disposition: Home Clinical Impression: Lumbar radiculopathy Condition: Stable Prescriptions: New methylprednisolone [Medrol (Bhupendra)] 4 mg tablets,dose pack See Rx Instructions .ROUTE .COMPLEX Qty: 21 0RF Rx Instructions: for 6 days ketorolac 10 mg tablet 10 mg PO Q8H PRN (Reason: pain) 5 Days Qty: 14 0RF methocarbamol 750 mg tablet 750 mg PO Q8H PRN (Reason: muscle spasm) Qty: 30 0RF No Action hydrocodone-acetaminophen 7.5-325 mg tablet 1 tab PO Q8H PRN diclofenac sodium 50 mg tablet,delayed release (DR/EC) 50 mg PO Q8H PRN (Reason: pain) Qty: 14 0RF tizanidine 4 mg tablet 4 mg PO Q6H PRN (Reason: muscle spasticity) Qty: 20 0RF Rx Instructions: do not exceed 3 doses per 24 hrs prednisone 20 mg tablet 20 mg PO TID Qty: 15 0RF Rx Instructions: 1 p.o. 3 times daily x3 days, 1 p.o. twice daily x2 days, 1 p.o. daily x2 days Discharge Orders: Discharge ED (Routine); Ordered 04/27/25 Ordered By: Candice Gamez Referrals: Mario Koehler MD [Primary Care Provider, Family Practice] Discharge Diet: Usual diet Patient Instructions: Lumbar Radiculopathy (ED), Lower Back Exercises (ED), Patient Portal & Padmini Instructions Activity Restrictions/Additional Instructions: - You have isolated inflammatory changes to your low back. - Take Medrol Dosepak as prescribed - Icing this area will help - Add Tylenol and ibuprofen or you can use your diclofenac instead of the ibuprofen for pain -Ketorolac/Toradol, anti-inflammatory medication, and Robaxin/methocarbamol muscle relaxer was sent to the pharmacy. Do not use the ketorolac/Toradol with another anti-inflammatory medication as you can have worsening abdominal pain/association of ulcers or gastritis. - Return to ED if you do get groin numbness inability to urinate or incontinence. Thank you for choosing [facility] for your healthcare needs today. You have been screened and evaluated and felt safe for discharge. Health conditions do change or evolve sometimes and as such it is important that you follow up with your Primary Doctor to be re checked, 3-5 days is a general good time frame for follow up. 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
[2025-04-27] MEDS: orphenadrine 30 mg/mL Inj 2 mL 60 MG IM (13:36)
[2025-04-27 14:17] VITALS: BP 134/94; PULSE 64; O2SAT 97
== END 2025-04-27 14:20 | disposition home or self-care (01) ==
PROVIDERS: Emergency Provider Physician Assistant; PCP Family Medicine
DX: M54.16 Radiculopathy, lumbar region (principal); F17.290 Nicotine dependence, other tobacco product, uncomplicated
CPT/HCPCS: 72131; 96372; 99284; J1885; J2360